=== PATIENT | female | born 1950 | race Caucasian/White ===

== ENCOUNTER → 2017-07-04 | Outpatient (CLI) | payer MEDICARE ==
--- NOTE | 2017-07-04 09:56 | MM ---
Reason for exam: clinical finding. Last mammogram was performed 1 year ago. History: Patient is postmenopausal and has history of other cancer at age 56. Physical Findings: Nurse did not find any significant physical abnormalities on exam. MG 3D Diag Mammo W/Cad CARMINE Bilateral CC and MLO view(s) were taken. Prior study comparison: July 10, 2016, mammogram. July 06, 2015, mammogram. July 02, 2014, mammogram. The breast tissue is heterogeneously dense. This may lower the sensitivity of mammography. Areas of fat necrosis in the axilla are stable. Subareolar asymmetry on the left breast is unchanged and has an appearance of normal tissue. This likely accounts for the questioned CT finding. No significant changes when compared with prior studies. ASSESSMENT: Negative, BI-RAD 1 RECOMMENDATION: Routine screening mammogram of both breasts in 1 year.
== END | disposition home or self-care (01) ==
LOC: RADMAMWWP 07:54
PROVIDERS: ATTEND Obstetrics & Gynecology
DX: N63 Unspecified lump in breast (principal)
CPT/HCPCS: G0204; G0279

== ENCOUNTER → 2018-07-25 | Outpatient (CLI) | payer MEDICARE ==
--- NOTE | 2018-07-28 13:39 | MM ---
Reason for exam: screening (asymptomatic). Last mammogram was performed 1 year and 1 month ago. History: Patient is postmenopausal and has history of other cancer at age 56. Physical Findings: A clinical breast exam by your physician is recommended on an annual basis and results should be correlated with mammographic findings. MG 3D Screening Mammo W/Cad Bilateral CC and MLO view(s) were taken. Prior study comparison: July 04, 2017, bilateral MG 3d diag mammo w/cad CARMINE. July 10, 2016, mammogram. The breast tissue is heterogeneously dense. This may lower the sensitivity of mammography. Benign appearing bilateral calcifications. No suspicious abnormality. No significant changes when compared with prior studies. ASSESSMENT: Benign, BI-RAD 2 RECOMMENDATION: Routine screening mammogram of both breasts in 1 year.
== END | disposition home or self-care (01) ==
LOC: RADMAMWWP 14:52
PROVIDERS: ATTEND Obstetrics & Gynecology
DX: Z12.31 Encounter for screening mammogram for malignant neoplasm of breast (principal)
CPT/HCPCS: 77063; 77067

== ENCOUNTER → 2018-12-08 | Outpatient (CLI) | payer MEDICARE ==
--- NOTE | 2018-12-08 14:48 | BD ---
EXAMINATION TYPE: Axial Bone Density DATE OF EXAM: 12/08/2018 COMPARISON: 2017 CLINICAL HISTORY: Long-term use of systemic steroids. Osteoporosis screening. Height: 5 FT 3 IN Weight: 181 FRAX RISK QUESTIONS: Glucocorticoids (More than 3mos): YES (Ex: prednisone, prednisolone, methylprednisolone, dexamethasone, and hydrocortisone). History of Fracture in Adulthood: YES Secondary Osteoporosis: 3. Menopause before 45: YES RISK FACTORS HISTORY OF: Active: YES Postmenopausal woman: AGE 47 Lost more than 2 inches in height since high school: YES MEDICATIONS: Prednisone or other steroids: PREDISONE How Lon YEARS Thyroid Medications: YES Which medication: LEVOTHYROXINE How Lon YEARS Osteoporosis Medications: YES Which medication: GENERIC FOR BONIVA How Lon YRS Additional Medications: PREDISONE, ATACAND, METOPROLOL, BUPROPION, AMLODIPINE, BONIVA, LEVOTHYROXINE Additional History: PT HAS POLYMYOSITIS EXAM MEASUREMENTS: Bone mineral densitometry was performed using the USDS System. Bone mineral density as measured about the Lumbar spine is: ----- L1-L4(G/cm2): 0.978 T Score Values are as follows: ----- L2: -2.6 ----- L3: -1.1 ----- L4: -1.0 ----- L1-L4: -1.7 Bone mineral density has: INCREASED 2.9 % since study of: 2017 Bone mineral density about the R hip (g/cm2): 0.893 Bone mineral density about the L hip (g/cm2): 0.898 T Score values are as follows: -----R Neck: -1.0 -----L Neck: -1.0 -----R Total: -1.7 -----L Total: -1.4 Bone mineral density has: DECREASED -1.7 % since study of: 2017 IMPRESSION: Osteopenia (T Score between -2.5 and -1). There is slightly increased risk of fracture and the patient may be considered for treatment. Re-Screen 2-5 years. NOTE: T-SCORE=SD OF THE YOUNG ADULT MEAN.
== END | disposition home or self-care (01) ==
LOC: RADBDWWP 12:31
PROVIDERS: ATTEND Internal Medicine Rheumatology
DX: M85.80 Other specified disorders of bone density and structure, unspecified site (principal); M33.20 Polymyositis, organ involvement unspecified; Z79.52 Long term (current) use of systemic steroids
CPT/HCPCS: 77080

== ENCOUNTER → 2019-08-10 | Outpatient (CLI) | payer MEDICARE ==
--- NOTE | 2019-08-10 10:19 | MM ---
Reason for exam: screening (asymptomatic). Last mammogram was performed 1 year and 1 month ago. History: Patient is postmenopausal and has history of other cancer at age 56. Physical Findings: A clinical breast exam by your physician is recommended on an annual basis and results should be correlated with mammographic findings. MG 3D Screening Mammo W/Cad Bilateral CC and MLO view(s) were taken. Prior study comparison: July 25, 2018, bilateral MG 3d screening mammo w/cad. July 04, 2017, bilateral MG 3d diag mammo w/cad CARMINE. The breast tissue is heterogeneously dense. This may lower the sensitivity of mammography. Benign appearing bilateral calcifications. No suspicious abnormality. No significant changes when compared with prior studies. ASSESSMENT: Benign, BI-RAD 2 RECOMMENDATION: Routine screening mammogram of both breasts in 1 year.
== END | disposition home or self-care (01) ==
LOC: RADMAMWWP 07:51
PROVIDERS: ATTEND Obstetrics & Gynecology
DX: Z12.31 Encounter for screening mammogram for malignant neoplasm of breast (principal)
CPT/HCPCS: 77063; 77067

== ENCOUNTER → 2019-08-13 | Outpatient (CLI) | payer MEDICARE | END | disposition home or self-care (01) | LOC: LABWHC1 16:20 | PROVIDERS: ATTEND Orthopaedic Surgery | DX: M76.821 Posterior tibial tendinitis, right leg (principal); M25.571 Pain in right ankle and joints of right foot; E55.9 Vitamin D deficiency, unspecified; I11.9 Hypertensive heart disease without heart failure; E03.9 Hypothyroidism, unspecified; Z85.9 Personal history of malignant neoplasm, unspecified | CPT/HCPCS: 36415; 82306 ==

== ENCOUNTER 2020-03-18 10:21 | Day surgery (SDC) | payer MEDICARE ==
[~2020-03-18 10:21] MED LIST: ALPRAZolam 0.25 MG TAB PO PRN; ALPRAZolam 0.5 MG TAB PO PRN; ASPIRIN 325 MG TAB PO STA; NITROGLYCERIN SL TABS 0.4 MG TAB SUBLINGUAL PRN; SODIUM CHLORIDE 0.9% 1,000 ML in EMPTY BAG 1 BAG IV ONE
[2020-03-18 11:08] LABS: Basophils % (A) 0 %; Eosinophils # (A) 0.1 k/uL (0-0.7); Eosinophils % (A) 1 %; HCT 43.5 % (34.0-46.0); HGB 14.4 gm/dL (11.4-16.0); Lymphocytes # (A) 0.4 k/uL (1.0-4.8); Lymphocytes % (A) 4 %; MCHC 33.1 g/dL (31.0-37.0); MCV 93.7 fL (80.0-100.0); Mean Platelet Volume 7.7; Monocytes # (A) 0.5 k/uL (0-1.0); Monocytes % (A) 4 %; Neutrophils # (A) 10.3 k/uL (1.3-7.7); Neutrophils % (A) 89 %; Platelet Count 257 k/uL (150-450); RBC 4.64 m/uL (3.80-5.40); RDW 14.1 % (11.5-15.5); WBC 11.5 k/uL (3.8-10.6)
[2020-03-18] MEDS ORDERED: VERAPAMIL 2.5 MG/ML 2 ML AMP ONE (11:19)
[2020-03-18] MEDS ORDERED: LIDOCAINE 1% INJ 10MG/ML (20 ML MDV) ONE (11:19)
[2020-03-18 11:32] LABS: African American GFR (CKD) >90 (>60 ml/min/1.73 sqM); Anion Gap 6 mmol/L; Blood Urea Nitrogen 17 mg/dL (7-17); Carbon Dioxide 23 mmol/L (22-30); Chloride 109 mmol/L (98-107); Glucose 114 mg/dL (74-99); Non-African American GFR(CKD) 90 (>60 ml/min/1.73 sqM); Potassium 4.7 mmol/L (3.5-5.1); Sodium 138 mmol/L (137-145)
[2020-03-18] MEDS ORDERED: fentaNYL (PF) 50 MCG/ML 2 ML AMP ONE (11:38)
[2020-03-18] MEDS ORDERED: fentaNYL (PF) 50 MCG/ML 2 ML AMP IV ONE (11:45)
[2020-03-18] MEDS ORDERED: MIDAZOLAM 2 MG/2 ML VIAL IV ONE (11:45)
[2020-03-18] MEDS ORDERED: LIDOCAINE 1% INJ 10MG/ML (20 ML MDV) SQ ONE (11:47)
[2020-03-18] MEDS ORDERED: VERAPAMIL SYRINGE (5 MG/10 ML) INTRAARTER ONE (11:55)
[2020-03-18] MEDS ORDERED: HEPARIN SODIUM 1,000 UN/ML (10ML VL) ONE (11:56)
--- NOTE | 2020-03-18 12:21 | P.CARDCATH ---
Date of Procedure: 03/18/20 Preoperative Diagnosis: This is a 69-year-old female with history of coronary artery disease and chest pains who had a stress test and office recently. Patient developed chest pain and EKG changes and also reversible ischemia involving the anterior wall. Patient is advised to have a cardiac catheterization for definitive diagnosis. This is a patient of . Postoperative Diagnosis: Critical lesion involving the mid LAD Procedure(s) Performed: Left heart catheterization without left ventriculography Description of Procedure: HISTORY: This is a 69-year-old female with history of positive stress test with ischemia in the anterior wall CONSENT:I have discussed the risks, benefits and alternative therapies for the above-mentioned procedure and for both sedation/analgesia as well as necessary blood product administration, if indicated, as they pertain to this patient. The patient has indicated understanding and acceptance of the risks and procedures discussed. PROCEDURE: Patient was brought to the lab in a fasting state. Patient was given some IV sedation. The right wrist is infiltrated with lidocaine and right radial artery was entered using Seldinger technique. A 6-Yi catheter was left in place and selective coronary arteriography was performed. Patient tolerated the procedure well. Patient is going to have stent placement of the LAD by Dr. Torres Conscious Sedation: Versed 1mg Fentanyl 50 g Duration 21minutes HEMODYNAMICS: Aortic pressure is about 140/80. Left ventricle end-diastolic pressure is about 10. There was no gradient across the aortic valve SELECTIVE CORONARY ARTERIOGRAPHY: LEFT MAIN: Long and free of occlusive disease THE LEFT ANTERIOR DESCENDING CORONARY ARTERY:. Good caliber vessel with about 70% stenosis in the midportion. Rest of the vessel is free of any significant disease THE LEFT CIRCUMFLEX AND IS CORONARY ARTERY:. This is a fair caliber vessel giving rise good-sized OM branch. Mild plaque without any significant focal lesions THE RIGHT CORONARY ARTERY: Dominant vessel giving rise to PDA and PLV. Diffuse mild plaque without any significant focal lesion LEFT VENTRICULOGRAPHY:. Not performed FINAL IMPRESSION:. Critical lesion involving the mid LAD PLAN: Stent placement of the LAD to be done by Dr. Torres PROGNOSIS: []
[2020-03-18] MEDS ORDERED: BIVALIRUDIN BOLUS 250 MG/50 ML IV ONE (12:25)
[2020-03-18] MEDS ORDERED: BIVALIRUDIN 250 MG in SODIUM CHLORIDE 0.9% 50 ML IV ONE (12:26)
[2020-03-18] MEDS ORDERED: NITROGLYCERIN 1000MCG/10ML SYRINGE INTRACORON ONE (12:29)
[2020-03-18] MEDS ORDERED: IOPAMIDOL-370 125ML BTL INJ ONE (12:34)
[2020-03-18] MEDS ORDERED: TICAGRELOR 90 MG TAB ONE (12:35)
[2020-03-18] MEDS ORDERED: TICAGRELOR 90 MG TAB PO ONE (12:37)
[2020-03-18] MEDS ORDERED: ZOLPIDEM 5 MG TAB PO PRN (12:38)
[2020-03-18] MEDS ORDERED: RX INFO: IV CONTRAST WAS GIVEN 1 EACH MISC MISCELLANE PRN (12:38)
[2020-03-18] MEDS ORDERED: NITROGLYCERIN SL TABS 0.4 MG TAB SUBLINGUAL PRN (12:38)
[2020-03-18] MEDS ORDERED: ATROPINE SULFATE 0.1 MG/ML 10ML SYRINGE IV PRN (12:38)
[2020-03-18] MEDS ORDERED: MAG HYDROX/AL HYDROX/SIMETH 30 ML CUP PO PRN (12:38)
[2020-03-18] MEDS ORDERED: SODIUM CHLORIDE 0.9% 1,000 ML IV SCH (12:45)
[2020-03-18] MEDS ORDERED: LEVOTHYROXINE 75 MCG TAB PO SCH (12:45)
[2020-03-18 14:40] VITALS: BMI 32.3
--- NOTE | 2020-03-18 16:29 | PTCA ---
PERCUTANEOUSTRANS CORORONARY ANGIOGRAPHY DATE OF SERVICE: March 18, 2020 PERFORMING PHYSICIAN: Faisal Mcpherson MD. PROCEDURE PERFORMED: Successful stenting of the mid left anterior descending artery using 3.5 x 15 mm Xience NOHEMY with an excellent angiographic result and reduction of stenosis from 70?%-80% to 0%. INDICATION: This is a 69-year-old female patient who sees Dr. Conrad in the office as an outpatient with hypertension and dyslipidemia who was experiencing symptoms of chest discomfort and underwent myocardial perfusion imaging stress test and that revealed an anterior ischemia. Because of that, heart catheterization was advised. The patient underwent a heart catheterization by Dr. Julian and that showed severe disease involving the proximal to mid LAD. APPROACH: Right radial artery. COMPLICATION: None. LEVEL OF SEDATION: Moderate with sedation length of 18 minutes. PROCEDURE DESCRIPTION: Please refer to the diagnostic heart catheterization that was performed by Dr. Julian earlier today. Anticoagulation was initiated using Angiomax. Subsequently I did engage the left main using JL3.5 guide. I did wire the LAD using a run-through wire. Successful stenting was performed using 3.5 x 15 mm Xience NOHEMY where the stent was positioned under fluoroscopy guidance and deployed under 14 atmospheres for 20 seconds with postdilatation was performed using 3.5 x 10 mm NC balloon. The balloon was inflated under 18 atmospheres for 20 seconds. The final angiogram showed excellent angiographic results and the procedure was completed without any complication. POSTPROCEDURE MANAGEMENT: 1. Dual anti-platelet therapy. 2. Risk factor modifications. 3. Follow up with the patient. MMODL / IJN: [id number] /
[2020-03-18] MEDS ORDERED: ACETAMINOPHEN TAB 325 MG TAB PO STA (18:32)
[2020-03-18] MEDS: METOPROLOL TARTRATE 25 MG TAB PO SCH (20:32)
[2020-03-18] MEDS: TICAGRELOR 90 MG TAB PO SCH (20:32)
[2020-03-18] MEDS ORDERED: ATORVASTATIN 80 MG TAB PO SCH (21:00)
[2020-03-19] MEDS ORDERED: LEVOTHYROXINE 50 MCG TAB PO SCH (06:30)
[2020-03-19 08:06] LABS: Basophils % (A) 0 %; Eosinophils # (A) 0.2 k/uL (0-0.7); Eosinophils % (A) 3 %; HCT 41.2 % (34.0-46.0); HGB 13.8 gm/dL (11.4-16.0); Lymphocytes # (A) 0.7 k/uL (1.0-4.8); Lymphocytes % (A) 9 %; MCH 31.2 pg (25.0-35.0); MCHC 33.4 g/dL (31.0-37.0); MCV 93.4 fL (80.0-100.0); Mean Platelet Volume 7.5; Monocytes # (A) 0.7 k/uL (0-1.0); Monocytes % (A) 9 %; Neutrophils # (A) 5.9 k/uL (1.3-7.7); Neutrophils % (A) 78 %; Platelet Count 206 k/uL (150-450); RBC 4.42 m/uL (3.80-5.40); RDW 14.3 % (11.5-15.5); WBC 7.5 k/uL (3.8-10.6)
[2020-03-19 08:24] LABS: African American GFR (CKD) >90 (>60 ml/min/1.73 sqM); Anion Gap 5 mmol/L; Blood Urea Nitrogen 10 mg/dL (7-17); Calcium 9.3 mg/dL (8.4-10.2); Carbon Dioxide 25 mmol/L (22-30); Chloride 108 mmol/L (98-107); Glucose 101 mg/dL (74-99); Non-African American GFR(CKD) >90 (>60 ml/min/1.73 sqM); Potassium 4.1 mmol/L (3.5-5.1); Sodium 138 mmol/L (137-145)
[2020-03-19] MEDS ORDERED: MULTIVITAMINS, THERA 1 EACH TAB PO SCH (09:00)
[2020-03-19] MEDS ORDERED: NON FORMULARY DRUG (Turmeric Root Extract [Turmeric] 500 MG) PO SCH (09:00)
[2020-03-19] MEDS ORDERED: LOSARTAN 50 MG TAB PO SCH (09:00)
[2020-03-19] MEDS ORDERED: NON FORMULARY DRUG (Ubidecarenone [Co Q-10] 300 MG) PO SCH (09:00)
[2020-03-19] MEDS ORDERED: NON FORMULARY DRUG (Vitamin B Complex [Vitamin B Complex] 1 TAB) PO SCH (09:00)
[2020-03-19] MEDS ORDERED: ASCORBIC ACID 500 MG TAB PO SCH (09:00)
[2020-03-19] MEDS ORDERED: ASPIRIN 81 MG PO SCH (09:00)
[2020-03-19] MEDS ORDERED: predniSONE 10 MG TAB PO SCH (09:00)
[2020-03-19] MEDS ORDERED: NON FORMULARY DRUG (Calcium/Magnesium/Zinc [Calcium-Magnesium-Zinc Tablet] 1 TAB) PO SCH (09:00)
[2020-03-19] MEDS ORDERED: buPROPion XL 150 MG TAB.ER.24H PO SCH (09:00)
[2020-03-19] MEDS ORDERED: azaTHIOprine 50 MG TAB PO SCH (09:00)
[2020-03-19 09:03] VITALS: RESP 18; TEMP 97.6
[2020-03-19] MEDS: METOPROLOL TARTRATE 25 MG TAB PO SCH (09:04)
[2020-03-19] MEDS: TICAGRELOR 90 MG TAB PO SCH (09:14)
[2020-03-19] MEDS ORDERED: amLODIPine 5 MG TAB PO STA (11:15)
[2020-03-19] MEDS ORDERED: HYDROCHLOROTHIAZIDE 25 MG TAB PO SCH (11:15)
[2020-03-19 11:42] VITALS: PULSE 65
--- NOTE | 2020-03-19 11:45 | XR ---
EXAMINATION TYPE: XR chest 1V DATE OF EXAM: 03/19/2020 HISTORY: shortness of breath. REFERENCE: NONE. FINDINGS: The lungs are clear. Pleural spaces are clear. Heart size is within normal limits. There is mild vascular congestion without emeka edema. IMPRESSION: MILD VASCULAR CONGESTION.
--- NOTE | 2020-03-19 12:09 | PN ---
PROGRESS NOTE Mrs. Larios 69-year-old female who underwent cardiac catheterization yesterday by Dr. Julian, was found to have significant obstructive disease involving the LAD, underwent stenting of that vessel by Dr. Mcpherson, receiving a 3.5 x 15 mm Xience stent. She is doing well this morning. She has no chest pain. Her breathing has been stable. She denies any dizziness or palpitation. She denies any nausea. She is in sinus mechanism. She continues to be on aspirin once a day, Lipitor 80 mg daily, azathioprine, levothyroxine, losartan 100 mg daily, metoprolol tartrate 75 mg twice a day, Brilinta 90 mg twice a day, multivitamins. PHYSICAL EXAMINATION: Blood pressure running in the 150s. Her blood pressure earlier was elevated. Heart rate in the 70s. LUNGS: Clear. HEART: Regular rate and rhythm. S1, S2. No S3. No rub. ABDOMEN: Soft, obese, nontender. EXTREMITIES: No edema. Right radial pulse intact. EKG revealed no acute changes. LAB DATA: Revealed a hemoglobin of 13.8, BUN and creatinine 10 and 0.64, potassium 4.1. IMPRESSION: 1. Status post stenting of the LAD. 2. History of hypertension. 3. History of Hyperlipidemia. RECOMMENDATIONS: Patient will be discharged home today and follow up with Dr. Conrad next week. MMODL / IJN: [id number] /
[2020-03-19 13:10] VITALS: BP 147/78
[2020-04-06] MEDS ORDERED: IBANDRONATE SODIUM 150 MG PO SCH (09:00)
== END 2020-03-19 15:34 | disposition home or self-care (01) ==
LOC: CATHCVL 10:21 → 3SCARD 12:45 → CATHCVL 03-19 15:34
PROVIDERS: ATTEND Internal Medicine Cardiovascular Disease
DX: I25.10 Atherosclerotic heart disease of native coronary artery without angina pectoris (principal); I10 Essential (primary) hypertension; E78.5 Hyperlipidemia, unspecified; I42.1 Obstructive hypertrophic cardiomyopathy; I34.0 Nonrheumatic mitral (valve) insufficiency; I49.3 Ventricular premature depolarization; I71.2 Thoracic aortic aneurysm, without rupture; M33.20 Polymyositis, organ involvement unspecified; Z82.49 Family history of ischemic heart disease and other diseases of the circulatory system; Z79.82 Long term (current) use of aspirin; Z79.890 Hormone replacement therapy; Z79.52 Long term (current) use of systemic steroids; Z79.899 Other long term (current) drug therapy
CPT/HCPCS: 93458; 80048 ×2; 85025 ×2; 71045; C9600; C1887; C1725; C1769 ×2; C1874; C1894; J7500; J2250; J2001; J3010; J0583; J1644; J7512; Q9967

== ENCOUNTER → 2020-05-04 | Outpatient (CLI) | payer MEDICARE ==
[2020-05-04 17:53] LABS: Chol/HDL Ratio 3.53; LDL Cholesterol,Calculated 41.6 mg/dL (0.0-131.0); VLDL Calculation 39.4 mg/dL (5.00-40.00)
== END | disposition home or self-care (01) ==
LOC: LABWHC1 08:15
PROVIDERS: ATTEND Internal Medicine Clinical Cardiac Electrophysiology
DX: I25.10 Atherosclerotic heart disease of native coronary artery without angina pectoris (principal); E78.5 Hyperlipidemia, unspecified; M33.20 Polymyositis, organ involvement unspecified
CPT/HCPCS: 36415; 80061; 82550

== ENCOUNTER 2020-09-01 15:49 | Inpatient (IN) | payer MEDICARE ==
[2020-09-01] MEDS ORDERED: PANTOPRAZOLE 40 MG/10 ML VIAL IVP STA (16:24)
--- NOTE | 2020-09-01 16:29 | ED ---
General Adult HPI - General Chief complaint: GI Bleed Stated complaint: Blood in Stool Time Seen by Provider: 09/01/20 15:56 Source: patient Mode of arrival: ambulatory Limitations: no limitations - History of Present Illness Initial comments: Patient presents to the ED with her for evaluation. Patient states that she had a colonoscopy with 2 polyps removed (performed by Dr. Valdez) 2 days ago. Patient states that she developed bright red rectal bleeding about 3 hours ago, and she states that she has gone to the bathroom about 6-7 times now with rectal bleeding. Patient states that she is taking Brilinta currently, and she denies any other anticoagulant medication use. Patient denies having any symptoms or any other complaints at this time. Patient denies having any pain, fever or chills, headache, chest pain, dyspnea, dizziness, lightheadedness, palpitations, abdominal pain, rectal pain, nausea, vomiting, diarrhea or constipation, dysuria/hematuria/urinary frequency/urinary symptoms, or any other symptoms or complaints. - Related Data Home Medications Medication Instructions Recorded Confirmed Ascorbic Acid [Vitamin C] 2,000 mg PO DAILY 08/25/15 03/18/20 Aspirin [Adult Low Dose Aspirin EC] 81 mg PO DAILY 08/25/15 03/18/20 Calcium/Magnesium/Zinc 1 tab PO DAILY 08/25/15 03/18/20 [[id number]-[id number]-[id number] Tablet] Candesartan Cilexetil [Atacand] 16 mg PO DAILY 08/25/15 03/18/20 Ibandronate Sodium [Boniva] 150 mg PO Q30D 08/25/15 03/18/20 Metoprolol Tartrate 75 mg PO BID 08/25/15 03/18/20 Multivitamins, Thera [Multivitamin 1 tab PO DAILY 08/25/15 03/18/20 (formulary)] Ubidecarenone [Co Q-10] 300 mg PO DAILY 08/25/15 03/18/20 Vitamin B Complex 1 tab PO DAILY 08/25/15 03/18/20 buPROPion XL [Wellbutrin XL] 150 mg PO QAM 08/25/15 03/18/20 predniSONE 10 mg PO QAM 08/25/15 03/18/20 Levothyroxine Sodium [Synthroid] 50 mcg PO SUTUTHSA 03/16/20 03/18/20 Levothyroxine Sodium [Synthroid] 75 mcg PO MOWEFR 03/16/20 03/18/20 Turmeric Root Extract [Turmeric] 500 mg PO DAILY 03/16/20 03/18/20 azaTHIOprine [Imuran] 100 mg PO DAILY 03/16/20 03/18/20 Previous Rx's Medication Instructions Recorded Atorvastatin [Lipitor] 80 mg PO HS #90 tab 03/19/20 Nitroglycerin Sl Tabs [Nitrostat] 0.4 mg SUBLINGUAL Q5M PRN #25 tab 03/19/20 Ticagrelor [Brilinta] 90 mg PO BID #180 tab 03/19/20 hydroCHLOROthiazide [Hydrodiuril] 25 mg PO DAILY #90 tab 03/19/20 Allergies Allergy/AdvReac Type Severity Reaction Status Date / Time No Known Allergies Allergy Verified 09/01/20 15:54 Review of Systems ROS Statement: Those systems with pertinent positive or pertinent negative responses have been documented in the HPI. ROS Other: All systems not noted in ROS Statement are negative. Past Medical History Past Medical History: Cancer, GI Bleed, Hypertension Additional Past Medical History / Comment(s): LOWER GI BLEED. BASAL SKin CA. OSTEOPENIA. POLYMYOCYTIS. HEART MURMUR, SEE DR BLISS H&p, ASCENDING THORACIC AORTIC ANEURSYM, HYPERTROPHIC CARDIOMYOPATHY History of Any Multi-Drug Resistant Organisms: None Reported Past Surgical History: Heart Catheterization Additional Past Surgical History / Comment(s): SINUS. CARPAL TUNNEL CARMINE. BASAL SKIN CA ON BACK,LT FOOT TOE STRAIGHTENED, BLEPHAROPLASTY Past Anesthesia/Blood Transfusion Reactions: Postoperative Nausea & Vomiting (PONV) Additional Past Anesthesia/Blood Transfusion Reaction / Comment(s): INCLUDES IV SEDATION. Past Psychological History: Depression Smoking Status: Never smoker Past Alcohol Use History: None Reported Past Drug Use History: None Reported - Past Family History Mother Family Medical History: No Reported History General Exam Limitations: no limitations General appearance: alert, in no apparent distress Head exam: Present: atraumatic, normocephalic Eye exam: Present: normal appearance, PERRL, EOMI ENT exam: Present: mucous membranes moist Neck exam: Present: other (Trachea is in midline) Respiratory exam: Present: normal lung sounds bilaterally. Absent: respiratory distress, wheezes, rales, rhonchi Cardiovascular Exam: Present: regular rate, normal rhythm, normal heart sounds, other (Normal radial pulses bilaterally) GI/Abdominal exam: Present: soft. Absent: distended, tenderness, guarding Rectal exam: Present: deferred, other (Patient had a grossly bloody bowel movement on arrival to the ED, which was sent for occult blood testing) Extremities exam: Absent: tenderness, pedal edema Neurological exam: Present: alert, oriented X3. Absent: motor sensory deficit Psychiatric exam: Present: normal affect, normal mood Skin exam: Present: warm, dry, intact, normal color Course Vital Signs 09/01/20 15:52 Temperature 97.8 F Pulse Rate 75 Respiratory 20 Rate Blood Pressure 166/75 O2 Sat by Pulse 99 Oximetry - Reevaluation(s) Reevaluation #1: 09/01/20 17:20 Patient remains alert and breathing comfortably. Patient denies development of any new symptoms while in the ED. Patient remains hemodynamically stable in the ED. Patient and are aware the patient's test results, and they both agree with hospital admission at this time. 09/01/20 17:32 Case, H&P, test results and ED management thus far were discussed with Dr. Trejo who is currently in the ED. He recommends placing GI and cardiology consultat ions. He accepts hospital admission. He has no further recommendations at this time. Medical Decision Making - Medical Decision Making Patient's hemoglobin is within normal limits (12.7). Patient has been hemodynamically stable while in the ED. Will admit the patient to the hospital for observation/monitoring, further evaluation and serial H&H's. Dr. Trejo has accepted hospital admission. - Lab Data Result diagrams: 09/01/20 16:23 09/01/20 16:23 Lab Results 09/01/20 09/01/20 09/01/20 Range/Units 16:23 16:23 16:23 WBC 9.3 (3.8-10.6) k/uL RBC 4.27 (3.80-5.40) m/uL Hgb 12.7 (11.4-16.0) gm/dL Hct 37.7 (34.0-46.0) % MCV 88.1 (80.0-100.0) fL MCH 29.8 (25.0-35.0) pg MCHC 33.8 (31.0-37.0) g/dL RDW 13.3 (11.5-15.5) % Plt Count 267 (150-450) k/uL MPV 7.1 Neutrophils % 81 % Lymphocytes % 8 % Monocytes % 6 % Eosinophils % 3 % Basophils % 1 % Neutrophils # 7.6 (1.3-7.7) k/uL Lymphocytes # 0.7 L (1.0-4.8) k/uL Monocytes # 0.6 (0-1.0) k/uL Eosinophils # 0.3 (0-0.7) k/uL Basophils # 0.1 (0-0.2) k/uL PT 11.4 (9.0-12.0) sec INR 1.1 (<1.2) APTT 26.3 (22.0-30.0) sec Sodium 133 L (137-145) mmol/L Potassium 4.3 (3.5-5.1) mmol/L Chloride 103 (98-107) mmol/L Carbon Dioxide 23 (22-30) mmol/L Anion Gap 7 mmol/L BUN 14 (7-17) mg/dL Creatinine 0.63 (0.52-1.04) mg/dL Est GFR (CKD-EPI)AfAm >90 (>60 ml/min/1.73 sqM) Est GFR (CKD-EPI)NonAf >90 (>60 ml/min/1.73 sqM) Glucose 104 H (74-99) mg/dL Calcium 10.4 H (8.4-10.2) mg/dL Total Bilirubin 0.3 (0.2-1.3) mg/dL AST 44 H (14-36) U/L ALT 30 (4-34) U/L Alkaline Phosphatase 75 (38-126) U/L Total Protein 7.3 (6.3-8.2) g/dL Albumin 4.1 (3.5-5.0) g/dL Stool Occult Blood (Negative) Blood Type Blood Type Recheck Bld Type Recheck Status Antibody Screen Spec Expiration Date 09/01/20 09/01/20 Range/Units 16:23 16:23 WBC (3.8-10.6) k/uL RBC (3.80-5.40) m/uL Hgb (11.4-16.0) gm/dL Hct (34.0-46.0) % MCV (80.0-100.0) fL MCH (25.0-35.0) pg MCHC (31.0-37.0) g/dL RDW (11.5-15.5) % Plt Count (150-450) k/uL MPV Neutrophils % % Lymphocytes % % Monocytes % % Eosinophils % % Basophils % % Neutrophils # (1.3-7.7) k/uL Lymphocytes # (1.0-4.8) k/uL Monocytes # (0-1.0) k/uL Eosinophils # (0-0.7) k/uL Basophils # (0-0.2) k/uL PT (9.0-12.0) sec INR (<1.2) APTT (22.0-30.0) sec Sodium (137-145) mmol/L Potassium (3.5-5.1) mmol/L Chloride (98-107) mmol/L Carbon Dioxide (22-30) mmol/L Anion Gap mmol/L BUN (7-17) mg/dL Creatinine (0.52-1.04) mg/dL Est GFR (CKD-EPI)AfAm (>60 ml/min/1.73 sqM) Est GFR (CKD-EPI)NonAf (>60 ml/min/1.73 sqM) Glucose (74-99) mg/dL Calcium (8.4-10.2) mg/dL Total Bilirubin (0.2-1.3) mg/dL AST (14-36) U/L ALT (4-34) U/L Alkaline Phosphatase (38-126) U/L Total Protein (6.3-8.2) g/dL Albumin (3.5-5.0) g/dL Stool Occult Blood Positive H (Negative) Blood Type O Positive Blood Type Recheck O Pos Bld Type Recheck Status No Antibody Screen NEGATIVE Spec Expiration Date 09/04/20202322 Disposition Clinical Impression: Gastrointestinal hemorrhage Disposition: ADMITTED IP TO THIS [facility] Condition: Stable Is patient prescribed a controlled substance at d/c from ED?: No Referrals: Anthony Molina MD [Primary Care Provider] - 1-2 days Time of Disposition: 17:43
[2020-09-01] MEDS ORDERED: SODIUM CHLORIDE 0.9% 500 ML 500 ML IV ONE (16:30)
[2020-09-01 16:39] LABS: Basophils # (A) 0.1 k/uL (0-0.2); Basophils % (A) 1 %; Eosinophils # (A) 0.3 k/uL (0-0.7); Eosinophils % (A) 3 %; HCT 37.7 % (34.0-46.0); HGB 12.7 gm/dL (11.4-16.0); Lymphocytes # (A) 0.7 k/uL (1.0-4.8); Lymphocytes % (A) 8 %; MCH 29.8 pg (25.0-35.0); MCHC 33.8 g/dL (31.0-37.0); MCV 88.1 fL (80.0-100.0); Mean Platelet Volume 7.1; Monocytes # (A) 0.6 k/uL (0-1.0); Monocytes % (A) 6 %; Neutrophils # (A) 7.6 k/uL (1.3-7.7); Neutrophils % (A) 81 %; Platelet Count 267 k/uL (150-450); RBC 4.27 m/uL (3.80-5.40); RDW 13.3 % (11.5-15.5); WBC 9.3 k/uL (3.8-10.6)
[2020-09-01 16:48] LABS: INR 1.1 (<1.2); Partial Thromboplastin Time 26.3 sec (22.0-30.0); Prothrombin Time 11.4 sec (9.0-12.0)
[2020-09-01 16:56] LABS: ALT 30 U/L (4-34); AST 44 U/L (14-36); African American GFR (CKD) >90 (>60 ml/min/1.73 sqM); Albumin 4.1 g/dL (3.5-5.0); Alkaline Phosphatase 75 U/L (38-126); Anion Gap 7 mmol/L; Blood Urea Nitrogen 14 mg/dL (7-17); Calcium 10.4 mg/dL (8.4-10.2); Carbon Dioxide 23 mmol/L (22-30); Chloride 103 mmol/L (98-107); Glucose 104 mg/dL (74-99); Non-African American GFR(CKD) >90 (>60 ml/min/1.73 sqM); Potassium 4.3 mmol/L (3.5-5.1); Sodium 133 mmol/L (137-145); Total Bilirubin 0.3 mg/dL (0.2-1.3); Total Protein 7.3 g/dL (6.3-8.2)
[2020-09-01 18:29] LABS: Basophils # (A) 0.1 k/uL (0-0.2); Basophils % (A) 1 %; Eosinophils # (A) 0.3 k/uL (0-0.7); Eosinophils % (A) 2 %; HGB 11.5 gm/dL (11.4-16.0); Lymphocytes # (A) 0.5 k/uL (1.0-4.8); Lymphocytes % (A) 5 %; MCH 29.9 pg (25.0-35.0); MCHC 33.9 g/dL (31.0-37.0); MCV 88.2 fL (80.0-100.0); Mean Platelet Volume 7.4; Monocytes # (A) 0.7 k/uL (0-1.0); Monocytes % (A) 7 %; Neutrophils % (A) 84 %; Platelet Count 235 k/uL (150-450); RBC 3.86 m/uL (3.80-5.40); RDW 13.3 % (11.5-15.5); WBC 10.8 k/uL (3.8-10.6)
[2020-09-01] MEDS: SODIUM CHLORIDE 0.9% 1,000 ML IV SCH (18:38)
[2020-09-01] MEDS ORDERED: NITROGLYCERIN SL TABS 0.4 MG TAB SUBLINGUAL PRN (21:09)
--- NOTE | 2020-09-01 21:54 | XR ---
EXAMINATION TYPE: XR chest 1V portable DATE OF EXAM: 09/01/2020 CLINICAL HISTORY: Difficulty breathing progress study. TECHNIQUE: Single AP portable upright view of the chest is obtained. COMPARISON: Chest x-ray from March 19, 2020 FINDINGS: Background chronic parenchymal changes bilaterally without suspicious focal airspace opaci ty, pleural effusion, or pneumothorax seen. Cardiac silhouette size is stable and within normal limit s. Osseous structures are intact. IMPRESSION: Chronic parenchymal changes without acute pulmonary process.
[2020-09-01 22:05] LABS: Basophils % (A) 0 %; Eosinophils # (A) 0.2 k/uL (0-0.7); Eosinophils % (A) 2 %; HCT 30.3 % (34.0-46.0); HGB 10.4 gm/dL (11.4-16.0); Lymphocytes # (A) 0.7 k/uL (1.0-4.8); Lymphocytes % (A) 8 %; MCH 30.3 pg (25.0-35.0); MCHC 34.2 g/dL (31.0-37.0); MCV 88.4 fL (80.0-100.0); Mean Platelet Volume 8.4; Monocytes # (A) 0.6 k/uL (0-1.0); Monocytes % (A) 7 %; Neutrophils # (A) 7.2 k/uL (1.3-7.7); Neutrophils % (A) 81 %; Platelet Count 222 k/uL (150-450); RBC 3.43 m/uL (3.80-5.40); RDW 13.4 % (11.5-15.5); WBC 8.9 k/uL (3.8-10.6)
[2020-09-02] MEDS: METOPROLOL TARTRATE 25 MG TAB PO SCH ×2 (00:57→09:50)
--- NOTE | 2020-09-02 04:45 | HP ---
HISTORY AND PHYSICAL DATE OF SERVICE: 09/01/2020 CHIEF COMPLAINT: GI bleed. HISTORY OF PRESENT ILLNESS: This 69-year-old woman with a past medical history of multiple medical problems including history of GI bleed, hypertension, history of basal cell cancer, history of cardiac catheterization and stent placement in March being followed by Dr. Benton Molina in the outpatient setting. Recently had a colonoscopy and polypectomy by Dr. Valdez at [facility] about 2 days ago. Subsequently, today the patient noted to have a significant GI bleed, rectal bleeding about 3 hours ago, a large amount of darkish clot was noted. The patient came to [facility] and admitted for further evaluation and treatment. There is no history of fever, rigors. No history of headache, loss of consciousness or seizures. The patient is taking Brilinta currently because of the stent placement. PAST MEDICAL HISTORY: History of GI bleed, hypertension, history of depression. MEDICATIONS: Medications prior to admission include home medications are: 1. Pravachol. 2. Nitrostat. 3. Multivitamins. 4. Magnesium. 5. Biotin. 6. Coenzyme Q 10. 7. Turmeric. 8. Vitamin D3. 9. Aspirin. 10.Vitamin C. 11.Vitamin B complex. 12.Repatha. 13.Vitamin B12. 14.HydroDIURIL. 15.Brilinta. 16.Synthroid. 17.Wellbutrin. 18.Boniva. 19.Lopressor. 20.Atacand. ALLERGIES: None. FAMILY HISTORY: No history of heart disease or strokes in the family. SOCIAL HISTORY: No history of smoking. No history of alcohol intake. REVIEW OF SYSTEMS: ENT: No diminished hearing or diminished vision. CARDIOVASCULAR SYSTEM: No angina. RESPIRATORY SYSTEM: As mentioned earlier. GI: As mentioned earlier. : No dysuria. NERVOUS SYSTEM: No numbness or weakness. ALLERGY/IMMUNOLOGY: No asthma or hayfever. MUSCULOSKELETAL: As mentioned earlier. HEMATOLOGY/ONCOLOGY: No history of anemia. ENDOCRINE: No history of diabetes mellitus or hypothyroidism. CONSTITUTIONAL: As mentioned earlier. DERMATOLOGY: Negative. RHEUMATOLOGY: Negative. PSYCHIATRY: As mentioned earlier. PHYSICAL EXAMINATION: The patient is alert and oriented x3. Pulse 81, blood pressure 113/56, respiration 18, temperature 98 degrees, pulse ox 97% on room air. HEENT: Conjunctivae normal. NECK: No jugular venous distention. CARDIOVASCULAR: S1, S2 muffled. RESPIRATORY: Breath sounds diminished at the bases. A few scattered rhonchi and crackles. ABDOMEN: Soft, nontender. No mass palpable. LEGS: No edema. No swelling. NERVOUS SYSTEM: No focal deficits. LABS: WBC 10.8, hemoglobin 11.5, sodium 133. ASSESSMENT: 1. Acute lower gastrointestinal bleeding with possibly acute blood loss anemia. 2. Increased WBC. 3. History of recent colonoscopy and polypectomy. 4. Hyponatremia. 5. History of coronary artery disease, stent. 6. Increased AST. 7. History of hypertension. 8. History of osteopenia. 9. History of polymyositis. 10.History of cardiac murmur. 11.Ascending thoracic aortic aneurysm. 12.History of hypertrophic cardiomyopathy. 13.History of depression. 14.FULL CODE. RECOMMENDATIONS AND DISCUSSION: This 69-year-old woman presented with multiple complex medical issues. Will monitor the patient closely. Continue the current medications, continue symptomatic treatment. Stop the antiplatelet agents. I would recommend H and H q.6 and transfuse if hemoglobin falls less than 7. Otherwise Gastroenterology consultation for possible colonoscopy. Cardiology consultation. Resume the rest of medications. Prognosis guarded because of multiple complex medical issues. Further recommendations to follow. A copy of dictation forwarded to Dr. Benton Molina who is the primary physician. MMBEATAL / IJN: [id number] /
[2020-09-02] MEDS: SODIUM CHLORIDE 0.9% 1,000 ML IV SCH ×2 (06:17→19:52)
[2020-09-02] MEDS: LEVOTHYROXINE 100 MCG TAB PO SCH (06:23)
--- NOTE | 2020-09-02 08:21 | P.CRDCN ---
History of Present Illness Consult date: 09/02/20 Reason for Consult (text): GI bleed, patient on Brilinta Chief complaint: Lower GI bleeding History of present illness: This is a pleasant 69-year-old female who follows the office regularly with Dr. Conrad. She has a known history of coronary artery disease, in March of this year patient underwent stenting of the LAD. She has history of HOCM, hypertension, hyperlipidemia, thoracic aneurysm, mitral regurgitation. Patient underwent an EGD and colonoscopy by Dr. Patterson on Saturday of this week, she had 2 polyps removed. On Saturday the patient felt well, evening patient went to the bathroom, states that she passed a significant amount of blood clots through the rectum. She continued subsequent to that to have several episodes of bleeding from the rectum. Patient had held her Brilinta and aspirin prior to her procedure, but she did resume following the procedure. Her chest x-ray on presentation here showed chronic parenchymal changes without any acute pulmonary process. Blood pressure 115/68, heart rate 90, 98% on room air. Laboratory data on admission, white blood cell count 9.3, hemoglobin 12.7, platelet count 267. Sodium 133, potassium 4.4, BUN 14, creatinine 0.6. Stool for occult blood positive. Yesterday Morning's labs, white blood cell count 8.9, hemoglobin 10.4, platelet count 222. Patient did receive a unit of packed red blood cells last evening. No EKG performed. stacker shows a normal sinus rhythm with no evidence of any ectopy. Patient was seen and examined this morning, she denies any chest pain, no shortness of breath. Patient continues to have frequent bouts of lower GI bleeding. Past Medical History Past Medical History: Cancer, GI Bleed, Hypertension Additional Past Medical History / Comment(s): LOWER GI BLEED. BASAL SKin CA. OSTEOPENIA. POLYMYOCYTIS. HEART MURMUR, SEE DR BLISS H&p, ASCENDING THORACIC AORTIC ANEURSYM, HYPERTROPHIC CARDIOMYOPATHY History of Any Multi-Drug Resistant Organisms: None Reported Past Surgical History: Heart Catheterization Additional Past Surgical History / Comment(s): SINUS. CARPAL TUNNEL CARMINE. BASAL SKIN CA ON BACK,LT FOOT TOE STRAIGHTENED, BLEPHAROPLASTY Past Anesthesia/Blood Transfusion Reactions: Postoperative Nausea & Vomiting (PONV) Additional Past Anesthesia/Blood Transfusion Reaction / Comment(s): INCLUDES IV SEDATION. Past Psychological History: Depression Smoking Status: Never smoker Past Alcohol Use History: None Reported Past Drug Use History: None Reported - Past Family History Mother Family Medical History: No Reported History Medications and Allergies Home Medications Medication Instructions Recorded Confirmed Type Ascorbic Acid [Vitamin C] 500 mg PO DAILY 08/25/15 09/01/20 History Aspirin [Adult Low Dose Aspirin EC] 81 mg PO DAILY 08/25/15 09/01/20 History Candesartan Cilexetil [Atacand] 16 mg PO DAILY 08/25/15 09/01/20 History Ibandronate Sodium [Boniva] 150 mg PO Q30D 08/25/15 09/01/20 History Multivitamins, Thera [Multivitamin 1 tab PO DAILY 08/25/15 09/01/20 History (formulary)] Ubidecarenone [Co Q-10] 300 mg PO DAILY 08/25/15 09/01/20 History Vitamin B Complex 1 tab PO DAILY 08/25/15 09/01/20 History buPROPion XL [Wellbutrin XL] 150 mg PO DAILY 08/25/15 09/01/20 History Turmeric Root Extract [Turmeric] 500 mg PO DAILY 03/16/20 09/01/20 History azaTHIOprine [Imuran] 100 mg PO DAILY 03/16/20 09/01/20 History Nitroglycerin Sl Tabs [Nitrostat] 0.4 mg SUBLINGUAL Q5M PRN #25 tab 03/19/20 09/01/20 Rx Ticagrelor [Brilinta] 90 mg PO BID #180 tab 03/19/20 09/01/20 Rx Biotin 5,000 mcg PO DAILY 09/01/20 09/01/20 History Cholecalciferol [Vitamin D3 (25 2,000 unit PO DAILY 09/01/20 09/01/20 History Mcg = 1000 Iu)] Cyanocobalamin (Vitamin B-12) 2,500 mcg PO DAILY 09/01/20 09/01/20 History [Vitamin B-12] Evolocumab [Repatha Sureclick] 140 mg SQ Q14D 09/01/20 09/01/20 History Levothyroxine Sodium [Synthroid] 100 mcg PO SUTUTHSA 09/01/20 09/01/20 History Levothyroxine Sodium [Synthroid] 150 mcg PO MOWEFR 09/01/20 09/01/20 History Magnesium 250 mg PO DAILY 09/01/20 09/01/20 History Metoprolol Tartrate [Lopressor] 75 mg PO BID 09/01/20 09/01/20 History Pravastatin Sodium [Pravachol] 20 mg PO HS 09/01/20 09/01/20 History hydroCHLOROthiazide [Hydrodiuril] 12.5 mg PO DAILY 09/01/20 09/01/20 History Allergies Allergy/AdvReac Type Severity Reaction Status Date / Time No Known Allergies Allergy Verified 09/01/20 19:26 Physical Exam Vitals: Vital Signs Temp Pulse Pulse Resp BP BP Pulse Ox 09/02/20 04:27 98.3 F 93 17 115/69 98 09/02/20 02:59 98.4 F 80 18 135/71 97 09/02/20 01:03 98.1 F 83 18 128/66 96 09/02/20 00:33 97.8 F 73 17 123/67 95 09/02/20 00:32 97.8 F 75 17 133/75 95 09/02/20 00:23 98.2 F 79 18 130/69 09/01/20 22:26 72 18 117/71 98 09/01/20 21:49 97.3 F L 72 112/69 09/01/20 21:15 74 142/80 97 09/01/20 19:53 98 F 81 18 113/56 97 09/01/20 18:00 70 16 143/77 100 09/01/20 15:52 97.8 F 75 20 166/75 99 Intake and Output 09/01/20 09/02/20 09/02/20 22:59 06:59 14:59 Intake Total 310 Output Total 1 1 Balance -1 309 Intake: Blood Product 310 Rc Pheresis As3 Unit 310 [id number] Output: Urine 1 1 Other: Voiding Method Toilet Toilet # Bowel Movements 3 1 Weight 80.286 kg PHYSICAL EXAMINATION: GENERAL: 69-year-old female in no acute distress at the time of my exa mination HEENT: Head is atraumatic, normocephalic. Pupils equal, round. Sclera anicteric. Conjunctiva are clear. Mucous membranes of the mouth are moist. Neck is supple. There is no elevated jugular venous pressure. No carotid bruit is heard. HEART EXAMINATION: Heart S1 and S2 systolic ejection murmur is heard CHEST EXAMINATION: Lungs are clear to auscultation and precussion. No chest wall tenderness is noted on palpation or with deep breathing. ABDOMEN: Soft, nontender. Bowel sounds are heard. No organomegaly noted. EXTREMITIES: 2+ peripheral pulses with no evidence of peripheral edema and no calf tenderness noted. NEUROLOGIC patient is awake, alert and oriented 3 . . Results 09/01/20 21:57 09/01/20 16:23 Cardiac Enzymes 09/01/20 Range/Units 16:23 AST 44 H (14-36) U/L Coagulation 09/01/20 Range/Units 16:23 PT 11.4 (9.0-12.0) sec APTT 26.3 (22.0-30.0) sec CBC 09/01/20 09/01/20 09/01/20 Range/Units 16:23 18:06 21:57 WBC 9.3 10.8 H 8.9 (3.8-10.6) k/uL RBC 4.27 3.86 3.43 L (3.80-5.40) m/uL Hgb 12.7 11.5 10.4 L (11.4-16.0) gm/dL Hct 37.7 34.0 30.3 L (34.0-46.0) % Plt Count 267 235 222 (150-450) k/uL Comprehensive Metabolic Panel 09/01/20 Range/Units 16:23 Sodium 133 L (137-145) mmol/L Potassium 4.3 (3.5-5.1) mmol/L Chloride 103 (98-107) mmol/L Carbon Dioxide 23 (22-30) mmol/L BUN 14 (7-17) mg/dL Creatinine 0.63 (0.52-1.04) mg/dL Glucose 104 H (74-99) mg/dL Calcium 10.4 H (8.4-10.2) mg/dL AST 44 H (14-36) U/L ALT 30 (4-34) U/L Alkaline Phosphatase 75 (38-126) U/L Total Protein 7.3 (6.3-8.2) g/dL Albumin 4.1 (3.5-5.0) g/dL Current Medications Generic Name Dose Route Start Last Admin Trade Name Freq PRN Reason Stop Dose Admin Azathioprine 100 mg 09/02/20 09:00 Azathioprine 50 Mg Tab PO DAILY [facility] Bupropion HCl 150 mg 09/02/20 09:00 Bupropion Xl 150 Mg Tab.Er.24h PO DAILY [facility] Hydrochlorothiazide 12.5 mg 09/02/20 09:00 Hydrochlorothiazide 25 Mg Tab PO DAILY [facility] Sodium Chloride 1,000 mls @ 80 mls/hr 09/01/20 17:45 09/02/20 06:17 Saline 0.9% IV 80 mls/hr .[id number] RACQUEL Administration Levothyroxine Sodium 150 mcg 09/02/20 06:30 09/02/20 06:23 Levothyroxine 100 Mcg Tab PO 150 mcg [id number] [facility] Administration Levothyroxine Sodium 100 mcg 09/03/20 06:30 Levothyroxine 100 Mcg Tab PO [id number] [facility] Losartan Potassium 100 mg 09/02/20 09:00 Losartan 50 Mg Tab PO DAILY [facility] Magnesium Oxide 200 mg 09/02/20 09:00 Magnesium Oxide 400 Mg Tab PO DAILY [facility] Metoprolol Tartrate 75 mg 09/01/20 21:15 09/02/20 00:57 Metoprolol Tartrate 25 Mg Tab PO Not Given BID [facility] Nitroglycerin 0.4 mg 09/01/20 21:09 Nitroglycerin Sl Tabs 0.4 Mg Tab SUBLINGUAL Q5M PRN Chest Pain Pravastatin Sodium 20 mg 09/02/20 21:00 Pravastatin Sodium 20 Mg Tab PO [facility] Intake and Output 09/01/20 09/02/20 09/02/20 22:59 06:59 14:59 Intake Total 310 Output Total 1 1 Balance -1 309 Intake: Blood Product 310 Rc Pheresis As3 Unit 310 [id number] Output: Urine 1 1 Other: Voiding Method Toilet Toilet # Bowel Movements 3 1 Weight 80.286 kg 09/01/20 21:57 09/01/20 16:23 EKG Interpretations (text) No EKG performed Assessment and Plan Plan: Assessment and plan #1 acute lower GI bleeding, patient underwent a colonoscopy 2 days prior with the removal of 2 polyps. She had been on Brilinta 90 mg twice a day along with aspirin 81 mg daily. Both of these were held prior to the procedure, they were resumed post procedure. Currently on hold. Patient did receive one unit of packed red blood cells last evening. #2 coronary artery disease with LAD stenting using a Xience NOHEMY in March of this year #3 HOCM #4 hyperlipidemia #5 hypertension #6 thoracic aneurysm #7 mitral regurgitation Plan Will obtain an echocardiogram with Doppler study, it appears the patient did have an echo in February of this year in the office. We will also obtain an EKG this morning. In view of the fact that the patient has had a recent stent placement to the LAD, and chronic stable angina, she will need to be resumed on her ASA as soon as possible, once cleared by GI. Further recommendations to follow. DNP note has been reviewed, I agree with a documented findings and plan of care. Patient was seen and examined.
[2020-09-02] MEDS ORDERED: hydroCHLOROthiazide 25 MG TAB PO SCH (09:00)
[2020-09-02 09:42] LABS: Basophils % (A) 0 %; Eosinophils # (A) 0.1 k/uL (0-0.7); Eosinophils % (A) 1 %; HCT 26.6 % (34.0-46.0); Lymphocytes # (A) 0.6 k/uL (1.0-4.8); Lymphocytes % (A) 6 %; MCH 28.8 pg (25.0-35.0); MCHC 32.5 g/dL (31.0-37.0); MCV 88.7 fL (80.0-100.0); Mean Platelet Volume 7.6; Monocytes # (A) 0.5 k/uL (0-1.0); Monocytes % (A) 6 %; Neutrophils # (A) 8.3 k/uL (1.3-7.7); Neutrophils % (A) 86 %; Platelet Count 246 k/uL (150-450); Poikilocytosis Slight; WBC 9.6 k/uL (3.8-10.6)
[2020-09-02 09:47] LABS: HGB 8.6 gm/dL (11.4-16.0)
[2020-09-02] MEDS: MAGNESIUM OXIDE 400 MG TAB PO SCH (09:50)
[2020-09-02] MEDS: LOSARTAN 50 MG TAB PO SCH (09:50)
[2020-09-02] MEDS: azaTHIOprine 50 MG TAB PO SCH (09:50)
[2020-09-02] MEDS: buPROPion XL 150 MG TAB.ER.24H PO SCH (09:50)
[2020-09-02 09:56] LABS: ALT 18 U/L (4-34); AST 26 U/L (14-36); African American GFR (CKD) >90 (>60 ml/min/1.73 sqM); Albumin 2.6 g/dL (3.5-5.0); Alkaline Phosphatase 49 U/L (38-126); Anion Gap 3 mmol/L; Blood Urea Nitrogen 15 mg/dL (7-17); Calcium 8.8 mg/dL (8.4-10.2); Carbon Dioxide 23 mmol/L (22-30); Chloride 107 mmol/L (98-107); Glucose 118 mg/dL (74-99); Non-African American GFR(CKD) >90 (>60 ml/min/1.73 sqM); Potassium 4.1 mmol/L (3.5-5.1); Sodium 133 mmol/L (137-145); Total Bilirubin 0.4 mg/dL (0.2-1.3); Total Protein 5.1 g/dL (6.3-8.2)
[2020-09-02] MEDS: PANTOPRAZOLE 40 MG/10 ML VIAL IVP SCH ×2 (11:03→21:25)
[2020-09-02] MEDS ORDERED: FUROSEMIDE 10 MG/ML 2 ML VIAL IV ONE (13:41)
--- NOTE | 2020-09-02 15:13 | PN ---
PROGRESS NOTE DATE OF SERVICE: 09/02/2020 This is a 69-year-old woman was admitted with acute gastrointestinal bleed, hemoglobin going up to 8.6. Patient being transfused 2 more units at this time. The patient received 3 units, 1 unit last night and 2 units this morning. The patient had some significant bleeding this morning. Dr. Feldman has seen the patient, recommended prep and as well as colonoscopy as soon as possible. Otherwise, the visualization may be difficult. Cardiology has seen the patient and recommend to resume the antiplatelet agents as soon as possible but; however, the patient is currently bleeding. PAST MEDICAL HISTORY: Reviewed. REVIEW OF SYSTEMS: CARDIOVASCULAR SYSTEM: No angina or palpitations. RESPIRATORY: As mentioned earlier. CARDIOVASCULAR SYSTEM: As mentioned earlier. GI: As mentioned earlier. : No dysuria. NERVOUS SYSTEM: No numbness or weakness. CURRENT MEDICATIONS: Reviewed and include: 1. Imuran. 2. Dulcolax. 3. Wellbutrin. 4. Synthroid. 5. Cozaar. 6. Magnesium oxide. 7. Lopressor. 8. Nitrostat. 9. Protonix. 10.Pravachol. PHYSICAL EXAM: Patient is alert, oriented x3. Pulse is 92, blood pressure is 96/52, respiration 18, temperature 98 degrees, pulse ox 96% on room air. HEENT: Conjunctivae are pale, oral mucosa moist. NECK: No jugular venous distention. No lymph node enlargement. CARDIOVASCULAR: S1, S2, muffled. No S3, no C4. RESPIRATION: Breath sound diminished in the bases. No rhonchi. No crackles. ABDOMEN: Soft, nontender. No mass palpable. LEGS: No edema, no cyanosis. NERVOUS SYSTEM: No focal deficits. LABS: WBC 9.2, hemoglobin is 8.6, sodium is 133. ASSESSMENT: 1. Acute lower gastrointestinal bleeding with possibly acute blood-loss anemia, possible from the bleeding from the biopsy site. 2. Increased WBC. 3. Relative hypotension. 4. History of recent colonoscopy and polypectomy. 5. Hyponatremia. 6. History of CAD stenting of the left anterior descending. 7. Increased AST. 8. Hypertension. 9. Osteopenia. 10.History of polymyositis. 11.Cardiac murmur. 12.History of ascending thoracic aortic aneurysm. 13.History hypertrophic cardiomyopathy. 14.History of depression. 15.FULL CODE. RECOMMENDATION: Recommend to continue current management and treatment otherwise I would recommend to continue to monitor the H and H q.6 hours and transfuse hemoglobin less than 7. Monitor blood pressure closely. Cut down the dose of metoprolol and closely follow with Gastroenterology and Cardiology. Preparation for colonoscopy. Gastroenterology and further recommendations to follow. Otherwise, closely follow with Cardiology. Overall prognosis extremely guarded because of the multiple complex medical issues as detailed above. Discussed with the patient who understands the condition: Further recommendations to follow. MMODL / IJN: [id number] /
[2020-09-02] MEDS ORDERED: PEG 3350-NA SULF,BICARB,CL/KCL 4,000 ML BOTTLE PO ONE (16:00)
[2020-09-02] MEDS ORDERED: bisacodyL 5 MG TABLET.DR PO ONE (17:00)
[2020-09-02 19:23] LABS: HCT 29.5 % (34.0-46.0); MCH 29.3 pg (25.0-35.0); MCHC 33.7 g/dL (31.0-37.0); MCV 86.9 fL (80.0-100.0); Mean Platelet Volume 7.3; Platelet Count 192 k/uL (150-450); Poikilocytosis Slight; RBC 3.39 m/uL (3.80-5.40); RDW 14.7 % (11.5-15.5)
[2020-09-02] MEDS ORDERED: METOPROLOL TARTRATE 50 MG TAB PO SCH (21:00)
[2020-09-02] MEDS: PRAVASTATIN SODIUM 20 MG TAB PO SCH (21:01)
[2020-09-02] MEDS: METOPROLOL TARTRATE 50 MG TAB PO SCH (21:46)
[2020-09-03 01:06] LABS: HCT 28.9 % (34.0-46.0); HGB 9.7 gm/dL (11.4-16.0); MCH 28.9 pg (25.0-35.0); MCHC 33.4 g/dL (31.0-37.0); MCV 86.6 fL (80.0-100.0); Mean Platelet Volume 7.7; Platelet Count 197 k/uL (150-450); Poikilocytosis Slight; RBC 3.34 m/uL (3.80-5.40); WBC 11.2 k/uL (3.8-10.6)
[2020-09-03] MEDS: LEVOTHYROXINE 100 MCG TAB PO SCH (06:13)
[2020-09-03] MEDS: azaTHIOprine 50 MG TAB PO SCH (08:44)
[2020-09-03] MEDS: buPROPion XL 150 MG TAB.ER.24H PO SCH (08:45)
[2020-09-03] MEDS: MAGNESIUM OXIDE 400 MG TAB PO SCH (08:46)
[2020-09-03] MEDS: LOSARTAN 50 MG TAB PO SCH (08:46)
[2020-09-03] MEDS: METOPROLOL TARTRATE 50 MG TAB PO SCH ×2 (08:48→20:54)
[2020-09-03] MEDS: PANTOPRAZOLE 40 MG/10 ML VIAL IVP SCH ×2 (08:48→20:54)
--- NOTE | 2020-09-03 10:23 | P.CONS ---
History of Present Illness - Reason for Consult Consult date: 09/02/20 GI bleed Requesting physician: Neo Trejo - Chief Complaint GI bleed - History of Present Illness 69-year-old female with medical history significant for hypertension, coronary artery disease status post cardiac catheterization with stent placement in March, basal cell cancer, and colon polyps who presented to the hospital due to concerns of GI bleeding. The patient recently underwent colonoscopy with polypectomy 2 this past week at [facility]. She subsequently developed episodes of painless bright red blood per rectum. She reports at least 7 episodes of bleeding per rectum. She denies any abdominal pain but does report some cramping. No nausea, vomiting, hematemesis or coffee-ground emesis. The patient is on anticoagulation Brilinta due to her history of prior stent placement. Hemoglobin on presentation found to be 8.6 from 12.7 previously. She has also undergone endoscopic evaluation in 08/2015 at which time EGD showed duodenitis and colonoscopy showed diverticulosis and pseudopolyps. Currently the patient is seen resting comfortably in bed. Review of Systems REVIEW OF SYSTEMS: CONSTITUTIONAL: Denies any fevers, chills, weight change or fatigue. CARDIOVASCULAR: Denies any chest pain, palpitations high or low blood pressures RESPIRATORY: Denies any shortness of breath, hemoptysis or cough. GENITOURINARY: No dysuria or hematuria. MUSCULOSKELETAL: No weakness reported. SKIN: Denies any new rashes or lesions, jaundice or pallor. PSYCHIATRIC: Denies any depression or anxiety. NEUROLOGY: Denies headache, denies any new focal deficits. EARS/NOSE/THROAT: No recent hearing change, congestion, nasal discharge or sore throat. EYES: No pain in eyes, discharge or change in vision. GASTROINTESTINAL: As per HPI. Past Medical History Past Medical History: Cancer, GI Bleed, Hypertension Additional Past Medical History / Comment(s): LOWER GI BLEED. BASAL SKin CA. OSTEOPENIA. POLYMYOCYTIS. HEART MURMUR, SEE DR BLISS H&p, ASCENDING THORACIC AORTIC ANEURSYM, HYPERTROPHIC CARDIOMYOPATHY History of Any Multi-Drug Resistant Organisms: None Reported Past Surgical History: Heart Catheterization Additional Past Surgical History / Comment(s): SINUS. CARPAL TUNNEL CARMINE. BASAL SKIN CA ON BACK,LT FOOT TOE STRAIGHTENED, BLEPHAROPLASTY Past Anesthesia/Blood Transfusion Reactions: Postoperative Nausea & Vomiting (PONV) Additional Past Anesthesia/Blood Transfusion Reaction / Comm: INCLUDES IV SEDATION. Past Psychological History: Depression Smoking Status: Never smoker Past Alcohol Use History: None Reported Past Drug Use History: None Reported - Past Family History Mother Family Medical History: No Reported History Medications and Allergies Home Medications Medication Instructions Recorded Confirmed Type Ascorbic Acid [Vitamin C] 500 mg PO DAILY 08/25/15 09/01/20 History Aspirin [Adult Low Dose Aspirin EC] 81 mg PO DAILY 08/25/15 09/01/20 History Candesartan Cilexetil [Atacand] 16 mg PO DAILY 08/25/15 09/01/20 History Ibandronate Sodium [Boniva] 150 mg PO Q30D 08/25/15 09/01/20 History Multivitamins, Thera [Multivitamin 1 tab PO DAILY 08/25/15 09/01/20 History (formulary)] Ubidecarenone [Co Q-10] 300 mg PO DAILY 08/25/15 09/01/20 History Vitamin B Complex 1 tab PO DAILY 08/25/15 09/01/20 History buPROPion XL [Wellbutrin XL] 150 mg PO DAILY 08/25/15 09/01/20 History Turmeric Root Extract [Turmeric] 500 mg PO DAILY 03/16/20 09/01/20 History azaTHIOprine [Imuran] 100 mg PO DAILY 03/16/20 09/01/20 History Nitroglycerin Sl Tabs [Nitrostat] 0.4 mg SUBLINGUAL Q5M PRN #25 tab 03/19/20 09/01/20 Rx Ticagrelor [Brilinta] 90 mg PO BID #180 tab 03/19/20 09/01/20 Rx Biotin 5,000 mcg PO DAILY 09/01/20 09/01/20 History Cholecalciferol [Vitamin D3 (25 2,000 unit PO DAILY 09/01/20 09/01/20 History Mcg = 1000 Iu)] Cyanocobalamin (Vitamin B-12) 2,500 mcg PO DAILY 09/01/20 09/01/20 History [Vitamin B-12] Evolocumab [Repatha Sureclick] 140 mg SQ Q14D 09/01/20 09/01/20 History Levothyroxine Sodium [Synthroid] 100 mcg PO SUTUTHSA 09/01/20 09/01/20 History Levothyroxine Sodium [Synthroid] 150 mcg PO MOWEFR 09/01/20 09/01/20 History Magnesium 250 mg PO DAILY 09/01/20 09/01/20 History Metoprolol Tartrate [Lopressor] 75 mg PO BID 09/01/20 09/01/20 History Pravastatin Sodium [Pravachol] 20 mg PO HS 09/01/20 09/01/20 History hydroCHLOROthiazide [Hydrodiuril] 12.5 mg PO DAILY 09/01/20 09/01/20 History Allergies Allergy/AdvReac Type Severity Reaction Status Date / Time No Known Allergies Allergy Verified 09/01/20 19:26 Physical Exam Vitals: Vital Signs Temp Pulse Pulse Resp BP BP Pulse Ox 09/02/20 09:00 98.0 F 95 18 93/58 96 09/02/20 04:27 98.3 F 93 17 115/69 98 09/02/20 02:59 98.4 F 80 18 135/71 97 09/02/20 01:03 98.1 F 83 18 128/66 96 09/02/20 00:33 97.8 F 73 17 123/67 95 09/02/20 00:32 97.8 F 75 17 133/75 95 09/02/20 00:23 98.2 F 79 18 130/69 09/01/20 22:26 72 18 117/71 98 09/01/20 21:49 97.3 F L 72 112/69 09/01/20 21:15 74 142/80 97 09/01/20 19:53 98 F 81 18 113/56 97 09/01/20 18:00 70 16 143/77 100 09/01/20 15:52 97.8 F 75 20 166/75 99 Intake and Output 09/01/20 09/02/20 09/02/20 22:59 06:59 14:59 Intake Total 310 Output Total 1 1 Balance -1 309 Intake: Blood Product 310 Rc Pheresis As3 Unit 310 [id number] Output: Urine 1 1 Other: Voiding Method Toilet Toilet # Bowel Movements 3 1 Weight 80.286 kg On physical examination, patient appears comfortable in no apparent distress. HEAD: Normocephalic, atraumatic. EYES: No scleral icterus. No conjunctival injection. MOUTH: No lesions, tongue midline. NECK: Trachea midline, no gross abnormalities. CHEST: Clear to auscultation with no wheezing or rhonchi appreciated. HEART: Regular rate and rhythm. ABDOMEN: Soft, nontender to palpation. Bowel sounds are positive. No organomegaly. No guarding or rigidity. EXTREMITIES: No pedal edema. SKIN: No rashes, no jaundice. NEUROLOGIC: Alert and oriented x3. No focal deficits. Results CBC & Chem 7: 09/03/20 00:51 09/02/20 09:11 Labs: Abnormal Lab Results - Last 24 Hours (Table) 09/01/20 09/01/20 09/01/20 Range/Units 16:23 16:23 16:23 WBC (3.8-10.6) k/uL RBC (3.80-5.40) m/uL Hgb (11.4-16.0) gm/dL Hct (34.0-46.0) % Neutrophils # (1.3-7.7) k/uL Lymphocytes # 0.7 L (1.0-4.8) k/uL Sodium 133 L (137-145) mmol/L Glucose 104 H (74-99) mg/dL Calcium 10.4 H (8.4-10.2) mg/dL AST 44 H (14-36) U/L Total Protein (6.3-8.2) g/dL Albumin (3.5-5.0) g/dL Stool Occult Blood Positive H (Negative) Crossmatch 09/01/20 09/01/20 09/01/20 Range/Units 16:23 18:06 21:57 WBC 10.8 H (3.8-10.6) k/uL RBC 3.43 L (3.80-5.40) m/uL Hgb 10.4 L (11.4-16.0) gm/dL Hct 30.3 L (34.0-46.0) % Neutrophils # 9.0 H (1.3-7.7) k/uL Lymphocytes # 0.5 L 0.7 L (1.0-4.8) k/uL Sodium (137-145) mmol/L Glucose (74-99) mg/dL Calcium (8.4-10.2) mg/dL AST (14-36) U/L Total Protein (6.3-8.2) g/dL Albumin (3.5-5.0) g/dL Stool Occult Blood (Negative) Crossmatch See Detail 09/02/20 09/02/20 Range/Units 09:11 09:11 WBC (3.8-10.6) k/uL RBC 3.00 L (3.80-5.40) m/uL Hgb 8.6 L D (11.4-16.0) gm/dL Hct 26.6 L (34.0-46.0) % Neutrophils # 8.3 H (1.3-7.7) k/uL Lymphocytes # 0.6 L (1.0-4.8) k/uL Sodium 133 L (137-145) mmol/L Glucose 118 H (74-99) mg/dL Calcium (8.4-10.2) mg/dL AST (14-36) U/L Total Protein 5.1 L (6.3-8.2) g/dL Albumin 2.6 L (3.5-5.0) g/dL Stool Occult Blood (Negative) Crossmatch Chest x-ray: report reviewed (Chronic changes seen on chest x-ray) Assessment and Plan (1) Hematochezia Narrative/Plan: 69-year-old female with multiple medical comorbidities including coronary artery disease on Brilinta after stent placement in March of this year who presented to the hospital with complaints of blood per rectum after colonoscopy earlier in the week. The patient reports multiple episodes of painless bright red blood p er rectum. Colonoscopy was significant for polypectomy 2. She denies any nausea, vomiting, hematemesis or coffee-ground emesis. Patient is passing gross red blood per rectum. Suspicion is for post-polypectomy bleed, differential also includes diverticular bleed, AVM or other etiology. Current Visit: Yes Status: Acute Code(s): K92.1 - MELENA SNOMED Code(s): 139391331 (2) Anemia associated with acute blood loss Current Visit: Yes Status: Acute Code(s): D62 - ACUTE POSTHEMORRHAGIC ANEMIA SNOMED Code(s): 903040006 (3) Gastrointestinal hemorrhage Current Visit: Yes Status: Acute Code(s): K92.2 - GASTROINTESTINAL HEMORRHAGE, UNSPECIFIED SNOMED Code(s): 23138414 Plan: Supportive care Clear liquid diet Nothing by mouth after midnight Bowel prep ordered Continue to monitor serial hemoglobin and hematocrit and transfuse as needed Would hold antiplatelet/anticoagulation therapy for now, can however given asp irin due to recent stent placement Plan for colonoscopy tomorrow for further evaluation Appreciate recommendations from the cardiology service Thank you for allowing us to participate in the care of the patient
[2020-09-03 10:32] LABS: Basophils % (A) 1 %; Eosinophils # (A) 0.1 k/uL (0-0.7); Eosinophils % (A) 2 %; HCT 25.6 % (34.0-46.0); HGB 8.8 gm/dL (11.4-16.0); Lymphocytes # (A) 0.7 k/uL (1.0-4.8); Lymphocytes % (A) 10 %; MCH 29.9 pg (25.0-35.0); MCHC 34.5 g/dL (31.0-37.0); MCV 86.7 fL (80.0-100.0); Mean Platelet Volume 7.6; Monocytes # (A) 0.5 k/uL (0-1.0); Monocytes % (A) 7 %; Neutrophils # (A) 5.6 k/uL (1.3-7.7); Neutrophils % (A) 80 %; Platelet Count 166 k/uL (150-450); Poikilocytosis Slight; RBC 2.95 m/uL (3.80-5.40); RDW 14.8 % (11.5-15.5); WBC 7.1 k/uL (3.8-10.6)
[2020-09-03] MEDS ORDERED: PROPOFOL 10 MG/ML 20 ML VIAL IV ONE (10:32)
[2020-09-03] MEDS ORDERED: ONDANSETRON 4 MG/2 ML VIAL ONE (10:32)
[2020-09-03] MEDS ORDERED: IV FLUID CONTINUATION 1,000 ML IV ONE ×2 (10:34)
[2020-09-03 10:44] LABS: African American GFR (CKD) >90 (>60 ml/min/1.73 sqM); Anion Gap 3 mmol/L; Blood Urea Nitrogen 9 mg/dL (7-17); Calcium 8.8 mg/dL (8.4-10.2); Carbon Dioxide 25 mmol/L (22-30); Chloride 107 mmol/L (98-107); Glucose 94 mg/dL (74-99); Non-African American GFR(CKD) >90 (>60 ml/min/1.73 sqM); Potassium 3.7 mmol/L (3.5-5.1); Sodium 135 mmol/L (137-145)
--- NOTE | 2020-09-03 10:50 | PN ---
PROGRESS NOTE Mrs. Larios is a 69-year-old female who recently underwent a colonoscopy and presented with severe GI bleeding. She has history of coronary artery disease status post percutaneous revascularization in a setting of chronic ischemic heart disease. She has prepped to undergo colonoscopy today. She has some chest pain and that she relates to the prep. She denies any dizziness. No palpitation. Her breathing is stable. She denies any nausea or vomiting. She continues to be at this time on Imuran, bupropion, levothyroxine, losartan 100 mg daily, metoprolol 50 mg twice a day, pravastatin 20 mg daily. PHYSICAL EXAMINATION: Blood pressure 122/60 with a heart rate in 90s. LUNGS: Clear. Heart regular rate and rhythm S1, S2. No S3 with systolic murmur. No diastolic murmur. ABDOMEN: Soft, nontender. EXTREMITIES: No edema. LAB DATA: Revealed hemoglobin 9.7. IMPRESSION: 1. Severe gastrointestinal bleeding. Workup in progress. 2. Status post percutaneous revascularization performed in March for chronic ischemic heart disease. 3. History of hypertension. 4. Hyperlipidemia. RECOMMENDATIONS: We will await the results of the colonoscopy. If there is no active bleeding, then I would recommend to restart aspirin 81 mg daily. I will hold on the Brilinta at this time and depending on her progress, further recommendations will be made. MMODL / IJN: [id number] /
--- NOTE | 2020-09-03 11:26 | P.PCN ---
Date of Procedure: 09/03/20 Description of Procedure: BRIEF HISTORY: 69-year-old female with medical history significant for hypertension, coronary artery disease status post cardiac catheterization with stent placement in March, basal cell cancer, and colon polyps who presented to the hospital due to concerns of GI bleeding. The patient recently underwent colonoscopy with polypectomy 2 this past week at [facility]. She subsequently developed episodes of painless bright red blood per rectum. She reports at least 7 episodes of bleeding per rectum. She denies any abdominal pain but does report some cramping. No nausea, vomiting, hematemesis or coffee-ground emesis. The patient is on anticoagulation Brilinta due to her history of prior stent placement. Hemoglobin on presentation found to be 8.6 from 12.7 previously. She has also undergone endoscopic evaluation in 08/2015 at which time EGD showed duodenitis and colonoscopy showed diverticulosis and pseudopolyps. Currently the patient is seen resting comfortably in bed. PROCEDURE PERFORMED: Colonoscopy with Endo Clip placement. PREOPERATIVE DIAGNOSIS: Hematochezia, anemia of acute blood loss. ESTIMATED BLOOD LOSS: Minimal. IV sedation per Anesthesia. PROCEDURE: After informed consent was obtained, the patient, was brought into the endoscopy unit. IV sedation was administered by Anesthesia under continuous monitoring. Digital rectal examination was normal. Initially the Olympus CF-190 flexible video colonoscope was then inserted in the rectum, gradually advanced into the cecum without any difficulty. Careful examination was performed as the scope was gradually being withdrawn. Ileocecal valve and the appendiceal orifice were visualized and appeared normal. Prep was excellent. Mucosa of the cecum, ascending colon, transverse colon, descending colon, sigmoid colon, and rectum appeared normal. Scattered diverticula noted in the left colon. Nonbleeding ulcer in the ascending colon at the site of prior polypectomy, there was a small clots at the area with no bleeding after it was washed away and an Endo Clip was placed to ensure hemostasis. Low-grade internal hemorrhoids. No active bleeding or old blood was noted throughout the entire examined colon and terminal ileum. Retroflexion was performed in the rectum and no lesions were seen. The patient tolerated the procedure well. IMPRESSION: No active bleeding noted in entire examined colon and terminal ileum. Small nonbleeding ulcer at polypectomy site in the ascending colon with an adherent clot that was lavaged with no bleeding noted, Endo Clip was placed to ensure continued hemostasis. Mild Left colonic diverticulosis. Internal hemorrhoids. RECOMMENDATIONS: Findings of this examination were discussed with the patient [].
[2020-09-03 16:50] LABS: HCT 25.1 % (34.0-46.0); HGB 8.4 gm/dL (11.4-16.0); MCH 29.3 pg (25.0-35.0); MCHC 33.5 g/dL (31.0-37.0); MCV 87.4 fL (80.0-100.0); Mean Platelet Volume 7.8; Platelet Count 159 k/uL (150-450); Poikilocytosis Slight; RBC 2.87 m/uL (3.80-5.40); RDW 14.8 % (11.5-15.5); WBC 7.4 k/uL (3.8-10.6)
[2020-09-03] MEDS: SODIUM CHLORIDE 0.9% 1,000 ML IV SCH ×2 (19:13→20:53)
[2020-09-03] MEDS: ASPIRIN 81 MG PO SCH (19:35)
--- NOTE | 2020-09-03 19:53 | PN ---
PROGRESS NOTE DATE OF SERVICE: 09/03/2020 This 69-year-old woman was admitted with lower gastrointestinal bleed, has needed three units of transfusion. Patient had relative hypotension. The patient was seen by Dr. Feldman from Gastroenterology. Dr. Feldman performed colonoscopy and no active bleeding was noted. A small nonbleeding ulcer at the polypectomy site was noted in the ascending colon, which was with ( ) clot that was lavaged with no bleeding noted. An Endoclip was placed to ensure continued hemostasis and mild left colonic diverticulosis. Internal hemorrhoids also noted. Gastroenterology has seen the patient and recommended restart aspirin 81 daily and hold on the Brilinta at this time was suggested by Dr. Potter. PAST MEDICAL HISTORY: Reviewed. REVIEW OF SYSTEMS: CARDIOVASCULAR: No angina. GI As mentioned earlier. NERVOUS SYSTEM: No numbness or weakness. CURRENT MEDICATIONS: Reviewed and include Imuran, Wellbutrin, Synthroid, Cozaar, Protonix, Prevacid. PHYSICAL EXAM: Patient is alert, oriented. Pulse is 86, blood pressure 110/60, respiration 18, temperature 98.1, pulse ox 98% on room air. HEENT: Conjunctivae normal. Oral mucosa moist. NECK: No jugular venous distention. No lymph node enlargement. CARDIOVASCULAR: S1, S2, muffled. No S3, no S4, RESPIRATORY: Diminished breath sounds at the bases. Scattered rhonchi and crackles. ABDOMEN: Soft, nontender. LEGS: No edema, no swelling. NERVOUS SYSTEM: No focal motor or sensory deficits. LAB STUDIES: WBC 7.2, hemoglobin is 8.8, sodium is 135. ASSESSMENT: 1. Acute lower gastrointestinal bleeding with acute blood loss anemia from the bleeding from polypectomy site and status post colonoscopy and Endoclipping. 2. Increased WBC, possibly reactive. 3. Relative hypotension. 4. History of recent coronary artery disease, stenting of the left anterior descending. 5. History of recent colonoscopy and polypectomy. 6. Hyponatremia. 7. Increased AST. 8. Hypertension. 9. Osteopenia. 10.History of polymyositis. 11.Cardiac murmur. 12.History of ascending thoracic aortic aneurysm. 13.History of hypertrophic cardiomyopathy. 14.History of depression. 15.FULL CODE. RECOMMENDATIONS AND DISCUSSION: Recommend to continue current medications, symptomatic treatment. Otherwise at this time I recommend to initiate baby aspirin, continue to monitor, repeat hemoglobin and guarded prognosis because of multiple complex medical issues. Hold Jose per Cardiology. Further recommendations to follow. MMODL / IJN: [id number] /
[2020-09-03] MEDS: PRAVASTATIN SODIUM 20 MG TAB PO SCH (20:54)
[2020-09-04] MEDS: LEVOTHYROXINE 100 MCG TAB PO SCH (06:37)
[2020-09-04 07:21] LABS: Basophils % (A) 1 %; Eosinophils # (A) 0.2 k/uL (0-0.7); Eosinophils % (A) 4 %; HCT 24.1 % (34.0-46.0); HGB 7.9 gm/dL (11.4-16.0); Lymphocytes # (A) 0.6 k/uL (1.0-4.8); Lymphocytes % (A) 14 %; MCH 29.1 pg (25.0-35.0); MCHC 32.7 g/dL (31.0-37.0); MCV 89.1 fL (80.0-100.0); Mean Platelet Volume 7.6; Monocytes # (A) 0.4 k/uL (0-1.0); Monocytes % (A) 9 %; Neutrophils # (A) 3.2 k/uL (1.3-7.7); Neutrophils % (A) 71 %; Platelet Count 162 k/uL (150-450); Poikilocytosis Slight; RBC 2.71 m/uL (3.80-5.40); RDW 15.2 % (11.5-15.5); WBC 4.5 k/uL (3.8-10.6)
[2020-09-04 07:32] LABS: African American GFR (CKD) >90 (>60 ml/min/1.73 sqM); Anion Gap -1 mmol/L; Blood Urea Nitrogen 7 mg/dL (7-17); Calcium 8.6 mg/dL (8.4-10.2); Carbon Dioxide 27 mmol/L (22-30); Chloride 109 mmol/L (98-107); Glucose 90 mg/dL (74-99); Non-African American GFR(CKD) >90 (>60 ml/min/1.73 sqM); Potassium 3.8 mmol/L (3.5-5.1); Sodium 135 mmol/L (137-145)
[2020-09-04] MEDS: MAGNESIUM OXIDE 400 MG TAB PO SCH (09:02)
[2020-09-04] MEDS: METOPROLOL TARTRATE 50 MG TAB PO SCH ×2 (09:02→22:25)
[2020-09-04] MEDS: azaTHIOprine 50 MG TAB PO SCH (09:03)
[2020-09-04] MEDS: LOSARTAN 50 MG TAB PO SCH (09:03)
[2020-09-04] MEDS: PANTOPRAZOLE 40 MG/10 ML VIAL IVP SCH ×2 (09:04→22:26)
[2020-09-04] MEDS: buPROPion XL 150 MG TAB.ER.24H PO SCH (09:04)
[2020-09-04] MEDS: ASPIRIN 81 MG PO SCH (09:17)
[2020-09-04 09:47] LABS: Appearance,Urine Clear (Clear); Bilirubin,Urine Negative (Negative); Blood,Urine Negative (Negative); Color,Urine Colorless; Glucose,Urine (UA) Negative (Negative); Ketones,Urine Negative (Negative); Leukocyte Esterase,Urine Negative (Negative); Nitrite,Urine Negative (Negative); PH, Urine 6.5 (5.0-8.0); Protein,Urine Negative (Negative); Specific Gravity,Urine 1.003 (1.001-1.035); Urobilinogen,Urine <2.0 mg/dL (<2.0)
--- NOTE | 2020-09-04 10:38 | PN ---
PROGRESS NOTE Mrs. Larios is a 69-year-old female with a history of coronary artery disease who presented with significant GI bleeding following colonoscopy and polypectomy. She is feeling better today. Her breathing is better. She denies any symptoms of chest pain. She denies any dizziness or palpitation. She underwent colonoscopy and had no evidence of active bleeding. She was restarted on aspirin 81 mg daily. She is on Wellbutrin, Imuran, Synthroid, losartan 100 mg daily, metoprolol tartrate 50 mg twice a day and pravastatin 20 mg daily. PHYSICAL EXAMINATION: Blood pressure 113/60 with a heart rate in the 70s. LUNGS: Clear. Heart regular rate and rhythm, S1, S2. No S3. No rub. ABDOMEN: Soft, nontender. EXTREMITIES: No edema. LAB DATA: Revealed hemoglobin of 7.9. BUN and creatinine of 7 and 0.62. ASSESSMENT: 1. Acute GI bleeding, stabilizing. 2. Status post stenting in March. 3. History of hyperlipidemia. 4. Hypertension. RECOMMENDATIONS: From the cardiac standpoint, the patient should be able to be discharged home soon and follow up as an outpatient with Dr. Conrad. I will continue to hold the Brilinta at this time since her stent was done in the setting of chronic ischemic heart disease and recent bleeding. MMODL / IJN: [id number] /
[2020-09-04 12:14] LABS: HCT 23.8 % (34.0-46.0); HGB 7.8 gm/dL (11.4-16.0); MCHC 32.6 g/dL (31.0-37.0); Mean Platelet Volume 8.8; Platelet Count 151 k/uL (150-450); Poikilocytosis Slight; RBC 2.68 m/uL (3.80-5.40); RDW 15.4 % (11.5-15.5); WBC 4.9 k/uL (3.8-10.6)
--- NOTE | 2020-09-04 13:47 | P.PN ---
Subjective Progress Note Date: 09/04/20 Objective - Vital Signs Vital signs: Vital Signs Temp 97.9 F 09/04/20 09:00 Pulse 77 09/04/20 09:00 Resp 18 09/04/20 09:00 BP 113/66 09/04/20 09:00 Pulse Ox 96 09/04/20 09:00 Intake & Output 09/03/20 09/04/20 09/04/20 18:59 06:59 18:59 Intake Total 1457 Balance 1457 Intake: IV 100 Intake, IV Titration 560 Amount Sodium Chloride 0.9% 1, 560 000 ml @ 80 mls/hr IV . [id number] [facility] Rx#:[id number] Oral 797 Other: Voiding Method Toilet Toilet # Voids 3 3 # Bowel Movements 3 - Labs CBC & Chem 7: 09/04/20 12:04 09/04/20 06:33 Labs: Abnormal Lab Results - Last 24 Hours (Table) 09/03/20 09/04/20 09/04/20 Range/Units 16:24 06:33 06:33 RBC 2.87 L 2.71 L (3.80-5.40) m/uL Hgb 8.4 L 7.9 L (11.4-16.0) gm/dL Hct 25.1 L 24.1 L (34.0-46.0) % Lymphocytes # 0.6 L (1.0-4.8) k/uL Sodium 135 L (137-145) mmol/L Chloride 109 H (98-107) mmol/L 09/04/20 Range/Units 12:04 RBC 2.68 L (3.80-5.40) m/uL Hgb 7.8 L (11.4-16.0) gm/dL Hct 23.8 L (34.0-46.0) % Lymphocytes # (1.0-4.8) k/uL Sodium (137-145) mmol/L Chloride (98-107) mmol/L Assessment and Plan (1) Hematochezia Narrative/Plan: 69-year-old female with multiple medical comorbidities including coronary artery disease on Brilinta after stent placement in March of this year who presented to the hospital with complaints of blood per rectum after colonoscopy earlier in the week. The patient reports multiple episodes of painless bright red blood per rectum. Colonoscopy was significant for polypectomy 2. She denies any nausea, vomiting, hematemesis or coffee-ground emesis. Patient is passing gross red blood per rectum. Suspicion is for post-polypectomy bleed, differential also includes diverticular bleed, AVM or other etiology. Colonoscopy was performed with Endo Clip placed at the site of prior polypectomy with no active bleeding noted at that time but a small amount of blood/clot at the polypectomy site. Current Visit: Yes Status: Acute Code(s): K92.1 - MELENA SNOMED Code(s): 332760024 (2) Anemia associated with acute blood loss Current Visit: Yes Status: Acute Code(s): D62 - ACUTE POSTHEMORRHAGIC ANEMIA SNOMED Code(s): 793153197 (3) Gastrointestinal hemorrhage Current Visit: Yes Status: Acute Code(s): K92.2 - GASTROINTESTINAL HEMORRHAGE, UNSPECIFIED SNOMED Code(s): 29731011 Plan: Supportive care Okay for diet Continue to monitor serial hemoglobin and hematocrit and transfuse as needed Cardiology service following, okay to resume anticoagulation therapy/ antiplatelet therapy at this time No plans for further endoscopic evaluation therapy Thank you for allowing us to participate in the care of the patient
--- NOTE | 2020-09-04 15:44 | PN ---
PROGRESS NOTE DATE OF SERVICE: 09/04/2020 This 69-year-old woman who was admitted with acute lower gastrointestinal bleeding with acute blood loss anemia from bleeding from polypectomy site had Endo clip. The hemoglobin is dropped again today it was 7.9 and 7.8. No active bleeding was noted. Sodium is 130. Patient closely monitored. One unit transfusion has been arranged. So far the patient received 4 units transfusion. Past medical history reviewed. REVIEW OF SYSTEMS: CARDIOVASCULAR SYSTEM: No angina or palpitations. RESPIRATIONS: As mentioned earlier. GI: As mentioned earlier. no dysuria. Nervous system: No numbness, weakness. CURRENT MEDICATIONS: Reviewed and include: Aspirin, Imuran, Wellbutrin, Synthroid, Cozaar, magnesium oxide, Nitrostat, Protonix, Pravachol. PHYSICAL EXAM: Patient is alert, oriented times three. Pulse is 77. Blood pressure is 130/60. Respirations 18. Temperature 97.9, pulse ox 96% on room air. HEENT: Conjunctivae normal. NECK: No JVD. CARDIOVASCULAR: S1, S2 muffled. RESPIRATORY: Breath sounds diminished in the bases. ABDOMEN: Soft, nontender. No mass. LEGS are no edema. NERVOUS SYSTEM: No focal deficits. LABS: WBC 4.2, hemoglobin 7.8, sodium is 135. ASSESSMENT: 1. Acute lower gastrointestinal bleeding with acute blood loss anemia from bleeding from polypectomy site status colonoscopy and Endoclipping. 2. Status post blood transfusion x4. 3. Increased WBC possibly reactive. 4. Relative hypotension. 5. History of recent coronary artery disease/ stent of the left anterior descending. 6. History of recent colonoscopy and polypectomy. 7. Hyponatremia. 8. Increased AST. 9. Hypertension. 10.Osteopenia. 11.History of polymyositis. 12.History of cardiac murmur. 13.History of ascending thoracic aortic aneurysm. 14.History of hypertrophic cardiomyopathy. 15.History of depression. 16.FULL CODE. RECOMMENDATIONS AND DISCUSSION: In this 69 -year-old woman who presented with multiple complex medical issues, we will monitor the patient closely, continue the current medications, management and symptomatic treatment. Otherwise, at this time, I recommend continue with current medications. Aspirin has been initiated. Hemoglobin 7.8. Please note the patient has already received 4 units transfusion. We will continue to monitor. The prognosis guarded because of multiple complex medical issues, we will watch for any further GI bleeding. The patient is stabilized, the patient will be sent home after clearance from Gastroenterology and Cardiology within the next 24 hours. Further recommendations to follow. MMODL / IJN: [id number] /
[2020-09-04] MEDS: SODIUM CHLORIDE 0.9% 1,000 ML IV SCH (19:59)
[2020-09-04 20:43] LABS: HCT 26.1 % (34.0-46.0); MCH 30.4 pg (25.0-35.0); MCHC 34.6 g/dL (31.0-37.0); MCV 87.9 fL (80.0-100.0); Mean Platelet Volume 7.7; Platelet Count 169 k/uL (150-450); Poikilocytosis Slight; RBC 2.97 m/uL (3.80-5.40); WBC 6.1 k/uL (3.8-10.6)
[2020-09-04] MEDS: PRAVASTATIN SODIUM 20 MG TAB PO SCH (22:49)
[2020-09-05] MEDS: SODIUM CHLORIDE 0.9% 1,000 ML IV SCH (00:42)
[2020-09-05 05:08] LABS: HCT 25.3 % (34.0-46.0); HGB 8.7 gm/dL (11.4-16.0); MCH 30.1 pg (25.0-35.0); MCHC 34.3 g/dL (31.0-37.0); MCV 87.8 fL (80.0-100.0); Mean Platelet Volume 7.6; Platelet Count 151 k/uL (150-450); Poikilocytosis Slight; RBC 2.88 m/uL (3.80-5.40); RDW 15.1 % (11.5-15.5); WBC 5.5 k/uL (3.8-10.6)
[2020-09-05 08:25] VITALS: BP 138/75; PULSE 74; RESP 14; TEMP 98.2
[2020-09-05] MEDS: ASPIRIN 81 MG PO SCH (08:31)
[2020-09-05] MEDS: azaTHIOprine 50 MG TAB PO SCH (08:32)
[2020-09-05] MEDS: METOPROLOL TARTRATE 50 MG TAB PO SCH (08:32)
[2020-09-05] MEDS: LEVOTHYROXINE 100 MCG TAB PO SCH (08:32)
[2020-09-05] MEDS: LOSARTAN 50 MG TAB PO SCH (08:32)
[2020-09-05] MEDS: MAGNESIUM OXIDE 400 MG TAB PO SCH (08:32)
[2020-09-05] MEDS: buPROPion XL 150 MG TAB.ER.24H PO SCH (08:33)
[2020-09-05] MEDS: PANTOPRAZOLE 40 MG/10 ML VIAL IVP SCH (08:33)
[2020-09-05 10:30] LABS: Basophils % (A) 1 %; Eosinophils # (A) 0.2 k/uL (0-0.7); Eosinophils % (A) 4 %; HCT 27.7 % (34.0-46.0); Lymphocytes # (A) 0.6 k/uL (1.0-4.8); Lymphocytes % (A) 10 %; MCH 28.9 pg (25.0-35.0); MCHC 32.4 g/dL (31.0-37.0); MCV 89.2 fL (80.0-100.0); Mean Platelet Volume 7.7; Monocytes # (A) 0.4 k/uL (0-1.0); Monocytes % (A) 8 %; Neutrophils # (A) 4.4 k/uL (1.3-7.7); Neutrophils % (A) 77 %; Platelet Count 171 k/uL (150-450); Poikilocytosis Slight; RBC 3.11 m/uL (3.80-5.40); RDW 15.6 % (11.5-15.5); WBC 5.7 k/uL (3.8-10.6)
--- NOTE | 2020-09-05 10:42 | P.PN ---
Subjective Progress Note Date: 09/05/20 CHIEF COMPLAINT: GI bleed HISTORY OF PRESENT ILLNESS: Patient examined this morning at the bedside. She is status post colonoscopy with Endo Clip placement. Hemoglobin is stable at 9.0. She denies chest pain or pressure. Denies shortness of breath. Blood pr essure 138/75. Heart rate in the 70s. PHYSICAL EXAM: VITAL SIGNS: Reviewed. GENERAL: Well-developed in no acute distress. NECK: Supple. No JVD or thyromegaly LUNGS: Respirations even and unlabored. Lungs essentially clear to auscultation bilaterally. HEART: Regular rate and rhythm. S1 and S2 heard. EXTREMITIES: Normal range of motion. No clubbing or cyanosis. Peripheral pulses intact. No lower extremity edema ASSESSMENT: Acute GI bleed, status post colonoscopy with Endo Clip placement at polypectomy site Coronary artery disease with PCI to the LAD, March 2020 Hypertension Hyperlipidemia PLAN: Continue to hold Brilinta at discharge Continue aspirin Patient is stable for discharge from a cardiac perspective She is to follow up outpatient with Dr. Conrad Nurse practitioner note has been reviewed by physician. Signing provider agrees with the documented findings, assessment, and plan of care. Objective - Vital Signs Vital signs: Vital Signs Temp 98.2 F 09/05/20 08:24 Pulse 74 09/05/20 08:24 Resp 14 09/05/20 08:24 BP 138/75 09/05/20 08:24 Pulse Ox 97 09/05/20 08:24 Intake & Output 09/04/20 09/05/20 09/05/20 18:59 06:59 18:59 Intake Total 1120 310 Balance 1120 310 Intake: Oral 1120 Blood Product 0 310 Rc Pheresis 2 As3 Unit 0 310 [id number] Other: Voiding Method Toilet Toilet Toilet # Voids 600 1 - Labs CBC & Chem 7: 09/05/20 10:01 09/04/20 06:33 Labs: Abnormal Lab Results - Last 24 Hours (Table) 09/01/20 09/04/20 09/04/20 Range/Units 16:23 12:04 20:22 RBC 2.68 L 2.97 L (3.80-5.40) m/uL Hgb 7.8 L 9.0 L (11.4-16.0) gm/dL Hct 23.8 L 26.1 L (34.0-46.0) % RDW (11.5-15.5) % Lymphocytes # (1.0-4.8) k/uL Crossmatch See Detail 09/05/20 09/05/20 Range/Units 04:47 10:01 RBC 2.88 L 3.11 L (3.80-5.40) m/uL Hgb 8.7 L 9.0 L (11.4-16.0) gm/dL Hct 25.3 L 27.7 L (34.0-46.0) % RDW 15.6 H (11.5-15.5) % Lymphocytes # 0.6 L (1.0-4.8) k/uL Crossmatch
--- NOTE | 2020-09-05 14:03 | P.PN ---
Subjective Progress Note Date: 09/05/20 Principal diagnosis: GI Bleed The patient was seen and examined at the bedside. She is sitting up in denying any further episodes of rectal bleeding. She denies any abdominal pain, nausea, or vomiting. She is tolerating a heart healthy diet. Plan is for discharge home today. Objective - Vital Signs Vital signs: Vital Signs Temp 98.2 F 09/05/20 08:24 Pulse 74 09/05/20 08:24 Resp 14 09/05/20 08:24 BP 138/75 09/05/20 08:24 Pulse Ox 97 09/05/20 08:24 Intake & Output 09/04/20 09/05/20 09/05/20 18:59 06:59 18:59 Intake Total 1120 310 Balance 1120 310 Intake: Oral 1120 Blood Product 0 310 Rc Pheresis 2 As3 Unit 0 310 [id number] Other: Voiding Method Toilet Toilet Toilet # Voids 600 1 - Exam General appearance: The patient is alert, oriented, in no acute distress. HET: Head is normocephalic and atraumatic. Conjunctiva pink. Sclera anicteric. Neck: Supple without lymphadenopathy. Abdomen: Soft, nontender, nondistended with bowel sounds. No guarding or rigidity. Extremities: Normal skin color and turgor. No pedal edema Neurological: No focal deficits. Alert and oriented 3. - Labs CBC & Chem 7: 09/05/20 10:01 09/04/20 06:33 Labs: Abnormal Lab Results - Last 24 Hours (Table) 09/01/20 09/04/20 09/05/20 Range/Units 16:23 20:22 04:47 RBC 2.97 L 2.88 L (3.80-5.40) m/uL Hgb 9.0 L 8.7 L (11.4-16.0) gm/dL Hct 26.1 L 25.3 L (34.0-46.0) % RDW (11.5-15.5) % Lymphocytes # (1.0-4.8) k/uL Crossmatch See Detail 09/05/20 Range/Units 10:01 RBC 3.11 L (3.80-5.40) m/uL Hgb 9.0 L (11.4-16.0) gm/dL Hct 27.7 L (34.0-46.0) % RDW 15.6 H (11.5-15.5) % Lymphocytes # 0.6 L (1.0-4.8) k/uL Crossmatch Assessment and Plan (1) Hematochezia Narrative/Plan: 69-year-old female with multiple medical comorbidities including coronary artery disease on Brilinta after stent placement in March of this year who presented to the hospital with complaints of blood per rectum after colonoscopy earlier in the week. The patient reports multiple episodes of painless bright red blood per rectum. Colonoscopy was significant for polypectomy 2. She denies any nausea, vomiting, hematemesis or coffee-ground emesis. Patient is passing gross red blood per rectum. Suspicion is for post-polypectomy bleed, differential also includes diverticular bleed, AVM or other etiology. Colonoscopy was performed with Endo Clip placed at the site of prior polypectomy with no active bleeding noted at that time but a small amount of blood/clot at the polypectomy site. Status: Acute Code(s): K92.1 - MELENA SNOMED Code(s): 382275085 (2) Anemia associated with acute blood loss Status: Acute Code(s): D62 - ACUTE POSTHEMORRHAGIC ANEMIA SNOMED Code(s): 040409890 (3) Gastrointestinal hemorrhage Status: Acute Code(s): K92.2 - GASTROINTESTINAL HEMORRHAGE, UNSPECIFIED SNOMED Code(s): 79886301 Plan: Supportive care Okay for diet Cardiology service following, okay to resume anticoagulation therapy/antiplatelet therapy at this time No plans for further endoscopic evaluation therapy Thank you for allowing us to participate in the care of the patient, the patient may be discharged home with follow up with Dr. Valdez in 1-[address] Hilario Valdez I agree with the dictator's note ,documented as a scribe by Vera Rolon.
--- NOTE | 2020-09-06 09:10 | P.DS ---
Providers Date of admission: 09/02/20 11:11 Expected date of discharge: 09/05/20 Attending physician: Neo Trejo Consults: 09/01/20 17:44 Consult Physician Urgent Consulting Provider: Faisal Mcpherson Consult Reason/Comments: GI bleed on Brilinta for cardiac stent Do you want consulting provider notified?: Yes Consult Physician Urgent Consulting Provider: Meagan Valdez Consult Reason/Comments: GI bleed Do you want consulting provider notified?: Yes Primary care physician: Anthony Molina [facility] Course: Final diagnosis Acute lower GI bleeding with acute blood loss anemia from bleeding from polypectomy site status colonoscopy in Endo clipping Status post blood transfusions 4 Increased WBC possibly reactive Relative hypotension History of recent coronary artery disease/stent of the left anterior descending History of recent colonoscopy and polypectomy hyponatremia Increased AST hypertension Osteopenia History of polymyositis History of cardiac murmur History of ascending thoracic aortic aneurysm History of hypertrophic cardiomyopathy history of depression Full code Discharge disposition Patient is being discharged in a stable condition with guarded prognosis to home. Patient will follow-up with Dr. Molina in the outpatient setting upon discharge. Patient also instructed to follow-up with Dr. Conrad cardiology along with GI Dr. Feldman in the outpatient setting. Patient will continue on aspirin and was instructed to continue holding Brilinta until cardiology follow- up. Total time taken is greater than 35 minutes. History of present illness This is a 69-year-old female who was recently admitted with GI bleed and was being closely monitored. GI evaluated the patient and underwent colonoscopy with polypectomy 2 with possible diverticular bleed. Endo Clip was placed during colonoscopy and no further bleeding noted. During hospitalization patient did receive 4 units of PRBCs due to active bleeding. Patient will continue on aspirin although will hold Brilinta until cardiology follow-up in the outpatient setting. Hemoglobin today is 9.0 and patient was provided a prescription for close monitoring of hemoglobin levels. Patient also instructed to follow-up with primary care provider upon discharge. Patient denies any more active bleeding noted and would like to go home today. Currently no reports of chest pain, shortness of breath, or palpitations. Patient is afebrile. No reports of nausea or vomiting and patient is tolerating diet. Patient will be discharged home today. On exam vital signs are stable. Temp is 98.2F, pulse is 74, respirations are 14, blood pressure is 138/75, oxygen saturation is 97% on room air. Cardio S1, S2 are muffled. Respiratory system shows diminished breath sounds at the bases with no wheezing or rhonchi noted. Abdomen is soft and nontender. Nervous system shows no focal deficits. Please refer to medication reconciliation sheet for a list of medications. Patient Condition at Discharge: Stable Plan - Discharge Summary Discharge Rx Participant: No New Discharge Prescriptions: New Metoprolol Tartrate [Lopressor] 50 mg PO BID 30 Days #60 tab Pantoprazole Sodium [Protonix] 40 mg PO DAILY #30 tablet.dr Continue Ascorbic Acid [Vitamin C] 500 mg PO DAILY Aspirin [Adult Low Dose Aspirin EC] 81 mg PO DAILY buPROPion XL [Wellbutrin XL] 150 mg PO DAILY Candesartan Cilexetil [Atacand] 16 mg PO DAILY Ibandronate Sodium [Boniva] 150 mg PO Q30D Multivitamins, Thera [Multivitamin (formulary)] 1 tab PO DAILY Ubidecarenone [Co Q-10] 300 mg PO DAILY Vitamin B Complex 1 tab PO DAILY azaTHIOprine [Imuran] 100 mg PO DAILY Turmeric Root Extract [Turmeric] 500 mg PO DAILY Nitroglycerin Sl Tabs [Nitrostat] 0.4 mg SUBLINGUAL Q5M PRN #25 tab PRN Reason: Chest Pain Magnesium 250 mg PO DAILY Biotin 5,000 mcg PO DAILY Cholecalciferol [Vitamin D3 (25 Mcg = 1000 Iu)] 2,000 unit PO DAILY Evolocumab [Repatha Sureclick] 140 mg SQ Q14D Cyanocobalamin (Vitamin B-12) [Vitamin B-12] 2,500 mcg PO DAILY Pravastatin Sodium [Pravachol] 20 mg PO HS Levothyroxine Sodium [Synthroid] 100 mcg PO SUTUTHSA Levothyroxine Sodium [Synthroid] 150 mcg PO MOWEFR Discontinued Ticagrelor [Brilinta] 90 mg PO BID #180 tab hydroCHLOROthiazide [Hydrodiuril] 12.5 mg PO DAILY Metoprolol Tartrate [Lopressor] 75 mg PO BID Discharge Medication List Ascorbic Acid [Vitamin C] 500 mg PO DAILY 08/25/15 [History] Aspirin [Adult Low Dose Aspirin EC] 81 mg PO DAILY 08/25/15 [History] Candesartan Cilexetil [Atacand] 16 mg PO DAILY 08/25/15 [History] Ibandronate Sodium [Boniva] 150 mg PO Q30D 08/25/15 [History] Multivitamins, Thera [Multivitamin (formulary)] 1 tab PO DAILY 08/25/15 [History] Ubidecarenone [Co Q-10] 300 mg PO DAILY 08/25/15 [History] Vitamin B Complex 1 tab PO DAILY 08/25/15 [History] buPROPion XL [Wellbutrin XL] 150 mg PO DAILY 08/25/15 [History] Turmeric Root Extract [Turmeric] 500 mg PO DAILY 03/16/20 [History] azaTHIOprine [Imuran] 100 mg PO DAILY 03/16/20 [History] Nitroglycerin Sl Tabs [Nitrostat] 0.4 mg SUBLINGUAL Q5M PRN #25 tab 03/19/20 [Rx] Biotin 5,000 mcg PO DAILY 09/01/20 [History] Cholecalciferol [Vitamin D3 (25 Mcg = 1000 Iu)] 2,000 unit PO DAILY 09/01/20 [History] Cyanocobalamin (Vitamin B-12) [Vitamin B-12] 2,500 mcg PO DAILY 09/01/20 [History] Evolocumab [Repatha Sureclick] 140 mg SQ Q14D 09/01/20 [History] Levothyroxine Sodium [Synthroid] 100 mcg PO SUTUTHSA 09/01/20 [History] Levothyroxine Sodium [Synthroid] 150 mcg PO MOWEFR 09/01/20 [History] Magnesium 250 mg PO DAILY 09/01/20 [History] Pravastatin Sodium [Pravachol] 20 mg PO HS 09/01/20 [History] Metoprolol Tartrate [Lopressor] 50 mg PO BID 30 Days #60 tab 09/05/20 [Rx] Pantoprazole Sodium [Protonix] 40 mg PO DAILY #30 tablet. 09/05/20 [Rx] Follow up Appointment(s)/Referral(s): Jr Conrad MD [STAFF PHYSICIAN] - 1 Week Anthony Molina MD [Primary Care Provider] - 1-2 days Christiano Feldman MD [STAFF PHYSICIAN] - 1 Week Ambulatory/Diagnostic Orders: Complete Blood Count w/diff [LAB.AMB] Time Frame: 2 Days, Location: None Selected Activity/Diet/Wound Care/Special Instructions: Activity Limited until follow-up Continue current diet Follow-up with primary care provider upon discharge Continue to hold brilinta Repeat labs in 2-3 days Discharge Disposition: HOME SELF-CARE
== END 2020-09-05 13:03 | disposition home or self-care (01) | DRG 920 ==
LOC: EC 15:49 → 1SOBS 17:43 → OBSVTOIN 09-02 11:11
PROVIDERS: ADMIT Hospitalist; ATTEND Hospitalist
PROC: 30233N1 Transfusion of Nonautologous Red Blood Cells into Peripheral Vein, Percutaneous Approach (ICD-10-PCS; 2020-09-02)
PROC: 0W3P8ZZ Control Bleeding in Gastrointestinal Tract, Via Natural or Artificial Opening Endoscopic (ICD-10-PCS; principal; 2020-09-03 10:00)
DX: K91.840 Postprocedural hemorrhage of a digestive system organ or structure following a digestive system procedure (principal); I42.2 Other hypertrophic cardiomyopathy; K63.3 Ulcer of intestine; D62 Acute posthemorrhagic anemia; E87.1 Hypo-osmolality and hyponatremia; M33.20 Polymyositis, organ involvement unspecified; I71.2 Thoracic aortic aneurysm, without rupture; I95.9 Hypotension, unspecified; E78.5 Hyperlipidemia, unspecified; I34.0 Nonrheumatic mitral (valve) insufficiency; I25.10 Atherosclerotic heart disease of native coronary artery without angina pectoris; K57.30 Diverticulosis of large intestine without perforation or abscess without bleeding; K64.8 Other hemorrhoids; I10 Essential (primary) hypertension; F32.9 Major depressive disorder, single episode, unspecified; M85.80 Other specified disorders of bone density and structure, unspecified site; Z79.82 Long term (current) use of aspirin; Z79.890 Hormone replacement therapy; Z79.83 Long term (current) use of bisphosphonates; Z79.02 Long term (current) use of antithrombotics/antiplatelets; Z79.899 Other long term (current) drug therapy; Z87.19 Personal history of other diseases of the digestive system; Z85.828 Personal history of other malignant neoplasm of skin; Z87.39 Personal history of other diseases of the musculoskeletal system and connective tissue; Z86.69 Personal history of other diseases of the nervous system and sense organs; Z95.5 Presence of coronary angioplasty implant and graft; Z98.890 Other specified postprocedural states; Y83.8 Other surgical procedures as the cause of abnormal reaction of the patient, or of later complication, without mention of misadventure at the time of the procedure
CPT/HCPCS: 36415; 45382; 71045; 80048; 80053; 81003; 82272; 85025; 85027; 85610; 85730; 86850; 86900; 86901; 86920; 96374; 99285

== ENCOUNTER → 2021-08-14 | Outpatient (CLI) | payer MEDICARE ==
--- NOTE | 2021-08-17 11:19 | MM ---
Reason for exam: screening (asymptomatic). Last mammogram was performed 1 year ago. History: Patient is postmenopausal and has history of other cancer at age 56. Took hormonal contraceptives for 3 months. Physical Findings: A clinical breast exam by your physician is recommended on an annual basis and results should be correlated with mammographic findings. MG 3D Screening Mammo W/Cad Bilateral CC and MLO view(s) were taken. Prior study comparison: August 12, 2020, mammogram, performed at [facility]. August 10, 2019, bilateral MG 3d screening mammo w/cad. July 25, 2018, bilateral MG 3d screening mammo w/cad. The breast tissue is heterogeneously dense. This may lower the sensitivity of mammography. Benign oil cyst calcifications. No significant changes when compared with prior studies. ASSESSMENT: Benign, BI-RAD 2 RECOMMENDATION: Routine screening mammogram of both breasts in 1 year.
== END | disposition home or self-care (01) ==
LOC: RADMAMWWP 09:26
PROVIDERS: ATTEND Obstetrics & Gynecology
DX: Z12.31 Encounter for screening mammogram for malignant neoplasm of breast (principal); Z78.0 Asymptomatic menopausal state
CPT/HCPCS: 77063; 77067

== ENCOUNTER → 2022-01-18 | Outpatient (CLI) | payer MEDICARE ==
--- NOTE | 2022-01-19 06:05 | BD ---
EXAMINATION TYPE: Axial Bone Density DATE OF EXAM: 01/18/2022 COMPARISON: 2019 CLINICAL HISTORY: 71 years year old Female. ICD-10 CODE: M85.80 other specified disorders of bone de nsity Height: 5 FT 2 IN Weight: 173 FRAX RISK QUESTIONS: Alcohol (3 or more units per day): NO Family History (Parent hip fracture): NO Glucocorticoids (More than 3mos): YES (Ex: prednisone, prednisolone, methylprednisolone, dexamethasone, and hydrocortisone). History of Fracture in Adulthood: YES Secondary Osteoporosis: 1. Type 1 Diabetes: NO 2. Hyperthyroidism: NO 3. Menopause before 45: YES 4. Malnutrition: NO 5. Chronic liver disease: NO Rheumatoid Arthritis: NO Current Tobacco Use: NO RISK FACTORS HISTORY OF: Surgery to Spine/Hip(right/left)/Wrist (right/left): NO Family History of Osteoporosis: NO Active: YES Diet low in dairy products/other sources of calcium: NO Postmenopausal woman: YES Take estrogen and/or progesterone medications: NONE NOW Lost more than 2 inches in height since high school: YES Frequent falls: NO Poor Health: GOOD Hyperparathyroidism: NO Adrenal Insufficiency: NO MEDICATIONS: Prednisone or other steroids: TOOK FOR OVER 20 YEARS Thyroid Medications: YES Which medication: LEVOTHYROXINE How Long: OVER FIVE YEARS Osteoporosis Medications: YES Which medication: BONIVA How Lon-7 YEARS Additional Medications: BONIVA, CELLCEPT, LEVOTHYROXINE, ATACAND, WELLBUTRIN, HYDROCHLOROTHIAZIDE, PL AVIX, PRAVACHOL, PEP ATHA, NITRO Additional History: POLYMYOSITIS EXAM MEASUREMENTS: Bone mineral densitometry was performed using the Zomazz System. Bone mineral density as measured about the Lumbar spine is: ----- L1-L4(G/cm2): 1.001 T Score Values are as follows: ----- L1: -2.4 ----- L2: -2.6 ----- L3: -1.0 ----- L4: -0.3 ----- L1-L4: -1.5 Bone mineral density has: INCREASED 2.7 % SINCE STUDY OF 2019 Bone mineral density about the R hip (g/cm2): 0.862 Bone mineral density about the L hip (g/cm2): 0.864 T Score values are as follows: -----R Neck: -1.2 -----L Neck: -1.3 -----R Total: -2.0 -----L Total: -1.8 Bone mineral density has: DECREASED -6.0 % SINCE STUDY OF 2019 FRAX%s: The graph provided illustrates a 22.0 % for a major osteoporotic fx and a 2.9 %for the hips p robability for fx in 10 years time. IMPRESSION: Osteopenia (T Score between -2.5 and -1). There is slightly increased risk of fracture and the patient may be considered for treatment. Re-Screen 2-5 years. NOTE: T-SCORE=SD OF THE YOUNG ADULT MEAN.
== END | disposition home or self-care (01) ==
LOC: RADBDWWP 10:55
PROVIDERS: ATTEND Internal Medicine
DX: M85.89 Other specified disorders of bone density and structure, multiple sites (principal)
CPT/HCPCS: 77080

== ENCOUNTER 2022-01-19 11:07 | Day surgery (SDC) | payer MEDICARE ==
[2022-01-17 14:50] VITALS: BMI 29.3
[~2022-01-19 11:07] MED LIST changes: -ALPRAZolam 0.25 MG TAB PO PRN; -ALPRAZolam 0.5 MG TAB PO PRN; -ASPIRIN 325 MG TAB PO STA; +DEXAMETHASONE SOD PHOSPHATE 4 MG/ML 1 ML VIAL IV ONE; +HYDROmorphone 0.5 MG/0.5 ML SYRINGE IVP PRN; +LACTATED RINGERS 1,000 ML IV SCH; +MIDAZOLAM 2 MG/2 ML VIAL IV PRN; -NITROGLYCERIN SL TABS 0.4 MG TAB SUBLINGUAL PRN; +ONDANSETRON 4 MG/2 ML VIAL IVP ONE; +Pre Op ABX Message 1 EACH MISC MISCELLANE ONE; -SODIUM CHLORIDE 0.9% 1,000 ML in EMPTY BAG 1 BAG IV ONE
[2022-01-19] MEDS ORDERED: fentaNYL (PF) 50 MCG/ML 2 ML AMP ONE (11:50)
[2022-01-19] MEDS ORDERED: LIDOCAINE 1% INJ 10MG/ML (20 ML MDV) ONE (11:50)
[2022-01-19] MEDS ORDERED: PROPOFOL 10 MG/ML 20 ML VIAL IV ONE (11:50)
[2022-01-19] MEDS ORDERED: MIDAZOLAM 2 MG/2 ML VIAL ONE (11:50)
[2022-01-19] MEDS ORDERED: BUPIVACAINE (PF) 0.25% 30 ML VIAL SQ ONE (12:29)
[2022-01-19] MEDS ORDERED: LACTATED RINGERS 1,000 ML IV ONE ×3 (12:46→13:30)
[2022-01-19] MEDS ORDERED: fentaNYL (PF) 50 MCG/ML 2 ML AMP IVP ONE (12:49)
[2022-01-19] MEDS ORDERED: MIDAZOLAM 2 MG/2 ML VIAL IVP ONE (12:49)
[2022-01-19 13:32] VITALS: TEMP 97.9
[2022-01-19 14:28] VITALS: RESP 20
[2022-01-19 14:44] VITALS: BP 152/78; PULSE 76
--- NOTE | 2022-01-19 15:24 | P.OP ---
Date of Procedure: 01/19/22 Preoperative Diagnosis: Hallux rigidus left foot Postoperative Diagnosis: Same Procedure(s) Performed: First metatarsal phalangeal joint arthrodesis left foot Implants: Arthrex MaxForce MPJ fusion plate Arthrex AlloMatrix Anesthesia: SAMARA Surgeon: Zeke Katz Estimated Blood Loss (ml): 3 Pathology: none sent Condition: stable Disposition: PACU Description of Procedure: Prior to the patient being brought to the operating room, anesthesia administered a nerve block on the operative leg. Then the patient was brought into the operative room placed on table supine position. Timeout was taken to confirm correct patient identifiers, correct site procedure, and correct site of surgery. When the staff in the room were in agreement with the timeout, the patient was induced and placed under general anesthesia. A well-padded tourniquet was placed on the ankle. The foot was then prepped and draped in usual manner. The foot was exsanguinated with an Esmarch bandage and the tourniquet inflated to 250 mmHg. Attention directed over the first metatarsal phalangeal joint where a linear incision was made between the extensor hallucis longus tendon and the neurovascular structures. The incision was deepened down to the subcutaneous tissue careful to identify, avoid, and retract any neurovascular structures and cauterize any bleeding vessels. Blunt dissection was continued down to the joint capsule. A linear periosteal and capsular incision was made to the extensor hallucis longus tendon. Subperiosteal dissection was performed to expose the base of the proximal phalanx and head of the first metatarsal. A reamer saw was then used to contour the first metatarsal head and remove any of the osteophytes. Then a guidewire was placed centrally into the first metatarsal head and into the medullary canal parallel to the long access of the metatarsal. The concave reamer was then used to remove the articular cartilage and subchondral bone and expose bleeding medullary bone. The guidewire was removed and then used to aggressively fenestrate the head of the first metatarsal to promote bleeding. The guidewire was then inserted at the central aspect of the articular surface of the base of the proximal phalanx. It was advanced into the medullary canal parallel to the long axis of the phalanx. The convex reamer was then used to remove the articular cartilage and subchondral bone and expose bleeding medullary bone. The guidewire was removed and used to aggressively fenestrate this surface also. The wound is then thoroughly irrigated with antibiotic saline. Approximately 1 mL of Arthrex bone morphogenic protein material was placed between the arthrodesis segments. Then the MaxForce plate was placed dorsally across the arthrodesis site utilizing aligned in the plate to placed over the joint surface. It was temporarily fixat ed in position was checked under fluoroscopy. Once position was acceptable locking screws were placed in the distal holes in the proximal phalanx. A guidewire was then placed across the arthrodesis site to hold the joint in its position. Then the drill hole for the compression device of the plate was made the compression device inserted and then utilized to further compress the arthrodesis site. Once that was completed threaded olive wire was used to lock the plate in place and then the second compression screw was placed proximally to lock the plate and further compress the joint. A second nonlocking screw was placed in the proximal portion of the plate into the metatarsal and the last screw placed with locking screw in the most proximal portion of the plate on the metatarsal. Final fluoroscopic imaging showed complete compression across the arthrodesis site and proper alignment of the great toe. The wound is again irrigated with antibiotic saline. Deep closure was done with 2-0 Vicryl. Subcu closure done for Monocryl. And skin closure done with 3-0 Stratafix in a running subcuticular manner. Dermal glue was applied and allowed to dry. Steri-Strips are placed over the incision, then a jumpstart dressing, and then a bulky dry dressing. The tourniquet was released and capillary refill return to all digits on the foot. Patient was then placed in a well-padded, well molded plaster posterior mold/sugar tong splint. The ankle and foot were held in neutral position until the splint was dried. Anesthesia was then reversed and the patient was taken recovery with vital signs stable
== END 2022-01-19 15:27 | disposition home or self-care (01) ==
LOC: OR 11:07
PROVIDERS: ATTEND Podiatrist
DX: M20.22 Hallux rigidus, left foot (principal); E11.9 Type 2 diabetes mellitus without complications; I10 Essential (primary) hypertension; E78.5 Hyperlipidemia, unspecified; E07.9 Disorder of thyroid, unspecified; F32.A Depression, unspecified; K21.9 Gastro-esophageal reflux disease without esophagitis; I71.4 Abdominal aortic aneurysm, without rupture; M32.9 Systemic lupus erythematosus, unspecified; Z79.02 Long term (current) use of antithrombotics/antiplatelets; Z79.899 Other long term (current) drug therapy; Z95.5 Presence of coronary angioplasty implant and graft
CPT/HCPCS: 28750; C1713; J2250; J1100; J0690; J2405; J2001; J3010; J2704

== ENCOUNTER 2022-07-23 10:12 | Emergency (ER) | payer MEDICARE ==
[2022-07-23 10:58] VITALS: RESP 18
[2022-07-23 11:58] LABS: Basophils # (A) 0.1 k/uL (0-0.2); Basophils % (A) 1 %; Eosinophils # (A) 0.2 k/uL (0-0.7); Eosinophils % (A) 2 %; HCT 47.4 % (34.0-46.0); HGB 16.8 gm/dL (11.4-16.0); Lymphocytes # (A) 0.8 k/uL (1.0-4.8); Lymphocytes % (A) 7 %; MCH 30.2 pg (25.0-35.0); MCHC 35.4 g/dL (31.0-37.0); MCV 85.4 fL (80.0-100.0); Monocytes # (A) 0.6 k/uL (0-1.0); Monocytes % (A) 5 %; Neutrophils # (A) 9.4 k/uL (1.3-7.7); Neutrophils % (A) 83 %; Platelet Count 266 k/uL (150-450); RBC 5.55 m/uL (3.80-5.40); RDW 13.2 % (11.5-15.5); WBC 11.2 k/uL (3.8-10.6)
[2022-07-23 12:08] LABS: INR 1.1 (<1.2); Prothrombin Time 11.8 sec (9.0-12.0)
[2022-07-23 12:17] LABS: ALT 36 U/L (4-34); AST 39 U/L (14-36); African American GFR (CKD) >90 (>60 ml/min/1.73 sqM); Albumin 5.1 g/dL (3.5-5.0); Alkaline Phosphatase 76 U/L (38-126); Anion Gap 16 mmol/L; Blood Urea Nitrogen 19 mg/dL (7-17); Carbon Dioxide 27 mmol/L (22-30); Chloride 91 mmol/L (98-107); Glucose 108 mg/dL (74-99); Non-African American GFR(CKD) 78 (>60 ml/min/1.73 sqM); Potassium 3.7 mmol/L (3.5-5.1); Sodium 134 mmol/L (137-145); Total Bilirubin 0.8 mg/dL (0.2-1.3); Total Protein 8.1 g/dL (6.3-8.2)
[2022-07-23] MEDS ORDERED: PANTOPRAZOLE 40 MG/10 ML VIAL IVP STA (14:33)
[2022-07-23] MEDS ORDERED: ONDANSETRON 4 MG/2 ML VIAL IVP STA (14:33)
[2022-07-23] MEDS ORDERED: SODIUM CHLORIDE 0.9% 1,000 ML IV STA (14:41)
--- NOTE | 2022-07-23 14:43 | ED ---
General Adult HPI - General Chief complaint: GI Bleed Stated complaint: Vomiting and dark Stool Time Seen by Provider: 07/23/22 14:28 Source: patient, family, RN notes reviewed Mode of arrival: ambulatory Limitations: no limitations - History of Present Illness Initial comments: Patient is a pleasant 71-year-old female presenting to the emergency department with concern with nausea vomiting. Onset of symptoms was 5 days ago. Vomiting is 2-3 times per day. More in the evening. No abdominal pain. Patient has had a couple of dark looking stools the past couple of days. Patient does take aspirin. No other blood thinners. - Related Data Home Medications Medication Instructions Recorded Confirmed Ascorbic Acid [Vitamin C] 500 mg PO DAILY 08/25/15 01/19/22 Aspirin [Adult Low Dose Aspirin EC] 81 mg PO DAILY 08/25/15 01/19/22 Candesartan Cilexetil [Atacand] 16 mg PO DAILY 08/25/15 01/19/22 Ibandronate Sodium [Boniva] 150 mg PO Q30D 08/25/15 01/19/22 Multivitamins, Thera [Multivitamin 1 tab PO DAILY 08/25/15 01/19/22 (formulary)] Ubidecarenone [Co Q-10] 200 mg PO DAILY 08/25/15 01/19/22 Vitamin B Complex 1 tab PO DAILY 08/25/15 01/19/22 buPROPion XL [Wellbutrin XL] 150 mg PO DAILY 08/25/15 01/19/22 Turmeric Root Extract [Turmeric] 500 mg PO DAILY 03/16/20 01/19/22 Cholecalciferol [Vitamin D3 (25 2,000 unit PO DAILY 09/01/20 01/19/22 Mcg = 1000 Iu)] Evolocumab [Repatha Sureclick] 140 mg SQ Q30D 09/01/20 01/19/22 Levothyroxine Sodium [Synthroid] 25 mcg PO GARZA 09/01/20 01/19/22 Levothyroxine Sodium [Synthroid] 50 mcg PO MOTUWETHFRSA 09/01/20 01/19/22 Magnesium 250 mg PO HS 09/01/20 01/19/22 Clopidogrel [Plavix] 75 mg PO DAILY 01/17/22 01/19/22 Metoprolol Succinate (ER) [Toprol 100 mg PO HS 01/17/22 01/19/22 Xl] Pravastatin Sodium [Pravachol] 5 mg PO HS 01/17/22 01/19/22 hydroCHLOROthiazide [Hydrodiuril] 25 mg PO DAILY 01/17/22 01/19/22 mycophenolate mofetiL [Cellcept] 1,500 mg PO BID 01/17/22 01/19/22 Previous Rx's Medication Instructions Recorded Nitroglycerin Sl Tabs [Nitrostat] 0.4 mg SUBLINGUAL Q5M PRN #25 tab 03/19/20 Pantoprazole Sodium [Protonix] 40 mg PO DAILY #30 tablet. 09/05/20 HYDROcodone/APAP 5-325MG [[place] 1 tab PO Q6HR PRN #30 tab 01/19/22 5-325] Famotidine [Pepcid] 20 mg PO BID #30 tablet 07/23/22 Ondansetron Odt [Zofran Odt] 4 mg PO Q8HR PRN #10 tab 07/23/22 Allergies Allergy/AdvReac Type Severity Reaction Status Date / Time No Known Allergies Allergy Verified 07/23/22 10:54 Review of Systems ROS Statement: Those systems with pertinent positive or pertinent negative responses have been documented in the HPI. ROS Other: All systems not noted in ROS Statement are negative. Constitutional: Denies: fever Eyes: Denies: eye pain ENT: Denies: ear pain Respiratory: Denies: cough Cardiovascular: Denies: chest pain Endocrine: Denies: fatigue Gastrointestinal: Reports: as per HPI, nausea, vomiting Genitourinary: Denies: dysuria Musculoskeletal: Denies: back pain Skin: Denies: rash Neurological: Denies: weakness Past Medical History Past Medical History: Cancer, GI Bleed, Hyperlipidemia, Hypertension, Osteoarthritis (OA), Thyroid Disorder Additional Past Medical History / Comment(s): LOWER GI BLEED. BASAL SKin CA. OSTEOPENIA. polymyositis. HEART MURMUR, ASCENDING THORACIC AORTIC ANEURSYM-being monitored, HYPERTROPHIC CARDIOMYOPATHY, lupus History of Any Multi-Drug Resistant Organisms: None Reported Past Surgical History: Heart Catheterization, Heart Catheterization With Stent Additional Past Surgical History / Comment(s): SINUS. CARPAL TUNNEL CARMINE. BASAL SKIN CA ON BACK,LT FOOT TOE STRAIGHTENED, BLEPHAROPLASTY, cataracts removed Past Anesthesia/Blood Transfusion Reactions: Postoperative Nausea & Vomiting (PONV) Additional Past Anesthesia/Blood Transfusion Reaction / Comment(s): INCLUDES IV SEDATION. Date of Last Stent Placement:: March 2020 Past Psychological History: Depression Smoking Status: Never smoker Past Alcohol Use History: None Reported Past Drug Use History: None Reported - Past Family History Mother Family Medical History: No Reported History General Exam Limitations: no limitations General appearance: alert, in no apparent distress Head exam: Present: normocephalic Eye exam: Present: normal appearance Neck exam: Present: normal inspection Respiratory exam: Present: normal lung sounds bilaterally Cardiovascular Exam: Present: regular rate, normal rhythm Expanded Peripheral pulses: 2+: Dorsalis Pedis (R), Dorsalis Pedis (L) GI/Abdominal exam: Present: soft. Absent: distended, tenderness, guarding, rebound, rigid Rectal exam: Present: normal inspection. Absent: black stool, bloody stool Extremities exam: Present: normal inspection Neurological exam: Present: alert Psychiatric exam: Present: normal affect, normal mood Skin exam: Present: normal color Course Vital Signs 07/23/22 07/23/22 10:54 14:56 Temperature 97.8 F Pulse Rate 76 77 Respiratory 18 18 Rate Blood Pressure 143/90 143/84 O2 Sat by Pulse 97 100 Oximetry EKG Findings - EKG Comments: EKG Findings:: Sinus rhythm rate 69. VA 168. QRS 113. QT 440. QTc 459. Left axis. LVH. Repolarization change Medical Decision Making - Medical Decision Making Patient reevaluated and resting comfortably in bed. Patient is feeling better. Patient discussion had regarding admission versus going home. Patient has brown-appearing stool without gross melena or hematochezia. Hemoglobin is improved from previous. Patient is feeling well and would like to try to go home. Patient is advised prescription or [id number] Pepcid as well as Zofran prescription. Patient advised to return for worsening symptoms, black or red stools, or vomiting blood or not tolerating oral intake - Lab Data Result diagrams: 07/23/22 11:42 07/23/22 11:42 Lab Results 07/23/22 07/23/22 07/23/22 Range/Units 11:42 11:42 11:42 WBC 11.2 H (3.8-10.6) k/uL RBC 5.55 H (3.80-5.40) m/uL Hgb 16.8 H (11.4-16.0) gm/dL Hct 47.4 H (34.0-46.0) % MCV 85.4 (80.0-100.0) fL MCH 30.2 (25.0-35.0) pg MCHC 35.4 (31.0-37.0) g/dL RDW 13.2 (11.5-15.5) % Plt Count 266 (150-450) k/uL MPV 8.0 Neutrophils % 83 % Lymphocytes % 7 % Monocytes % 5 % Eosinophils % 2 % Basophils % 1 % Neutrophils # 9.4 H (1.3-7.7) k/uL Lymphocytes # 0.8 L (1.0-4.8) k/uL Monocytes # 0.6 (0-1.0) k/uL Eosinophils # 0.2 (0-0.7) k/uL Basophils # 0.1 (0-0.2) k/uL PT 11.8 (9.0-12.0) sec INR 1.1 (<1.2) Sodium 134 L (137-145) mmol/L Potassium 3.7 (3.5-5.1) mmol/L Chloride 91 L (98-107) mmol/L Carbon Dioxide 27 (22-30) mmol/L Anion Gap 16 mmol/L BUN 19 H (7-17) mg/dL Creatinine 0.78 (0.52-1.04) mg/dL Est GFR (CKD-EPI)AfAm >90 (>60 ml/min/1.73 sqM) Est GFR (CKD-EPI)NonAf 78 (>60 ml/min/1.73 sqM) Glucose 108 H (74-99) mg/dL Calcium 11.0 H (8.4-10.2) mg/dL Total Bilirubin 0.8 (0.2-1.3) mg/dL AST 39 H (14-36) U/L ALT 36 H (4-34) U/L Alkaline Phosphatase 76 (38-126) U/L Troponin I (0.000-0.034) ng/mL Total Protein 8.1 (6.3-8.2) g/dL Albumin 5.1 H (3.5-5.0) g/dL Stool Occult Blood (Negative) 07/23/22 07/23/22 Range/Units 11:42 14:19 WBC (3.8-10.6) k/uL RBC (3.80-5.40) m/uL Hgb (11.4-16.0) gm/dL Hct (34.0-46.0) % MCV (80.0-100.0) fL MCH (25.0-35.0) pg MCHC (31.0-37.0) g/dL RDW (11.5-15.5) % Plt Count (150-450) k/uL MPV Neutrophils % % Lymphocytes % % Monocytes % % Eosinophils % % Basophils % % Neutrophils # (1.3-7.7) k/uL Lymphocytes # (1.0-4.8) k/uL Monocytes # (0-1.0) k/uL Eosinophils # (0-0.7) k/uL Basophils # (0-0.2) k/uL PT (9.0-12.0) sec INR (<1.2) Sodium (137-145) mmol/L Potassium (3.5-5.1) mmol/L Chloride (98-107) mmol/L Carbon Dioxide (22-30) mmol/L Anion Gap mmol/L BUN (7-17) mg/dL Creatinine (0.52-1.04) mg/dL Est GFR (CKD-EPI)AfAm (>60 ml/min/1.73 sqM) Est GFR (CKD-EPI)NonAf (>60 ml/min/1.73 sqM) Glucose (74-99) mg/dL Calcium (8.4-10.2) mg/dL Total Bilirubin (0.2-1.3) mg/dL AST (14-36) U/L ALT (4-34) U/L Alkaline Phosphatase (38-126) U/L Troponin I <0.012 (0.000-0.034) ng/mL Total Protein (6.3-8.2) g/dL Albumin (3.5-5.0) g/dL Stool Occult Blood Positive H (Negative) Disposition Clinical Impression: Vomiting Disposition: HOME SELF-CARE Condition: Stable Instructions (If sedation given, give patient instructions): Gastrointestinal Bleeding (ED), Acute Nausea and Vomiting (ED) Additional Instructions: Prescription sent to pharmacy. Please do follow-up with your primary care physician in the next day or 2 for recheck. Return for bloody or black stools, increased vomiting, vomiting blood, increased pain, worsening symptoms or any other concern. Prescriptions: Famotidine [Pepcid] 20 mg PO BID #30 tablet Ondansetron Odt [Zofran Odt] 4 mg PO Q8HR PRN #10 tab PRN Reason: Nausea Is patient prescribed a controlled substance at d/c from ED?: No Referrals: Wilfredo Tovar MD [Primary Care Provider] - 1-2 days Time of Disposition: 15:39
[2022-07-23 16:12] VITALS: BP 136/83; PULSE 75; TEMP 98
== END 2022-07-23 16:12 | disposition home or self-care (01) ==
LOC: EC 10:12
DX: R11.10 Vomiting, unspecified (principal)
CPT/HCPCS: 36415; 93005; 80053; 84484; 85025; 85610; 82272; 99284; 96374; 96375; 96361; J2405; C9113

== ENCOUNTER → 2022-08-15 | Outpatient (CLI) | payer MEDICARE ==
--- NOTE | 2022-08-16 09:24 | MM ---
Reason for Exam: Screening (asymptomatic). Last screening mammogram was performed 12 month(s) ago. Patient History: Menarche at age 14. First Full-Term at age 28. Postmenopausal. Other cancer, age 56. Hormonal Contraceptives for 3 months. Risk Values: Sudha 5 year model risk: 1.9%. NCI Lifetime model risk: 5.9%. Prior Study Comparison: 07/04/2017 Bilateral Diagnostic Mammogram, [facility]. 07/25/2018 Bilateral Screening Mammogram, [facility]. 08/10/2019 Bilateral Screening Mammogram, [facility]. 08/12/2020 Screening Mammogram, [facility]. 08/14/2021 Bilateral Screening Mammogram, [facility]. Tissue Density: The breast tissue is heterogeneously dense. This may lower the sensitivity of mammography. Findings: Analyzed By CAD. There is no suspicious group of microcalcifications or new suspicious mass in either breast. Benign oil cyst calcifications. No significant change in prior studies. Overall Assessment: Benign, BI-RAD 2 Management: Screening Mammogram of both breasts in 1 year. A clinical breast exam by your physician is recommended on an annual basis and results should be correlated with mammographic findings. Electronically signed and approved by: Nima Hargrove D.O.
== END | disposition home or self-care (01) ==
LOC: RADMAMWWP 09:20
PROVIDERS: ATTEND Obstetrics & Gynecology
DX: Z12.31 Encounter for screening mammogram for malignant neoplasm of breast (principal); Z78.0 Asymptomatic menopausal state
CPT/HCPCS: 77063; 77067

== ENCOUNTER → 2022-09-13 | Outpatient (CLI) | payer MEDICARE ==
[2022-09-13 17:57] LABS: HCT 41.8 % (37.2-46.3); HGB 13.8 g/dL (12.0-15.0); MCH 30.3 pg (27.0-32.0); MCV 91.7 fL (80.0-97.0); Mean Platelet Volume 10.2 fL (9.5-12.2); NRBC Per 100 WBC 0 /100 WBCS (0.0-0.0); Platelet Count 306 X 10*3/uL (140-440); RBC 4.56 X 10*6/uL (4.10-5.20); RDW 13.3 % (11.5-14.5); WBC 10.15 X 10*3/uL (4.50-10.00)
[2022-09-13 18:09] LABS: African American GFR (CKD) 87.2 (60.0-200.0); Anion Gap 9.2 mmol/L (10.00-18.00); Blood Urea Nitrogen 17.3 mg/dL (9.0-27.0); Carbon Dioxide 24.8 mmol/L (20.0-27.5); Non-African American GFR(CKD) 75.2 (60.0-200.0); Potassium 4.9 mmol/L (3.5-5.5)
== END | disposition home or self-care (01) ==
LOC: LABPAT 12:41
PROVIDERS: ATTEND Internal Medicine Interventional Cardiology
DX: Z01.812 Encounter for preprocedural laboratory examination (principal); R94.39 Abnormal result of other cardiovascular function study
CPT/HCPCS: 36415; 80051; 82565; 84520; 85027

== ENCOUNTER 2022-09-14 08:44 | Day surgery (SDC) | payer MEDICARE ==
[~2022-09-14 08:44] MED LIST changes: +ALPRAZolam 0.25 MG TAB PO PRN; +ALPRAZolam 0.5 MG TAB PO PRN; +ASPIRIN 325 MG TAB PO STA; +ATORVASTATIN 80 MG TAB PO STA; -DEXAMETHASONE SOD PHOSPHATE 4 MG/ML 1 ML VIAL IV ONE; +HEPARIN SODIUM,PORCINE 10,000 UNIT in SODIUM CHLORIDE 0.9% 1,000 ML IRRIGATION PRN; +HEPARIN SODIUM,PORCINE 2,500 UNIT in SODIUM CHLORIDE 0.9% 250 ML IRRIGATION PRN; -HYDROmorphone 0.5 MG/0.5 ML SYRINGE IVP PRN; -LACTATED RINGERS 1,000 ML IV SCH; -MIDAZOLAM 2 MG/2 ML VIAL IV PRN; +NITROGLYCERIN SL TABS 0.4 MG TAB SUBLINGUAL PRN; -ONDANSETRON 4 MG/2 ML VIAL IVP ONE; -Pre Op ABX Message 1 EACH MISC MISCELLANE ONE
[2022-09-14] MEDS: SODIUM CHLORIDE 0.9% 1,000 ML in EMPTY BAG 1 BAG IV SCH ×2 (09:20→19:20)
[2022-09-14] MEDS ORDERED: HEPARIN SODIUM 1,000 UN/ML (10ML VL) ONE ×2 (13:34→18:04)
[2022-09-14] MEDS ORDERED: VERAPAMIL 2.5 MG/ML 2 ML AMP ONE ×2 (13:34→17:56)
[2022-09-14] MEDS ORDERED: ONDANSETRON 4 MG/2 ML VIAL IVP ONE (14:41)
[2022-09-14] MEDS ORDERED: fentaNYL (PF) 50 MCG/ML 2 ML AMP ONE (18:04)
[2022-09-14] MEDS ORDERED: MIDAZOLAM 2 MG/2 ML VIAL IV ONE (18:07)
[2022-09-14] MEDS ORDERED: fentaNYL (PF) 50 MCG/ML 2 ML AMP IV ONE (18:10)
[2022-09-14] MEDS: LIDOCAINE 1% INJ 10MG/ML (30 ML VIAL-PF) SQ ONE ×2 (18:11→18:14)
[2022-09-14] MEDS ORDERED: RX INFO: IV CONTRAST WAS GIVEN 1 EACH MISC MISCELLANE PRN (18:27)
[2022-09-14] MEDS ORDERED: SODIUM CHLORIDE 0.9% 1,000 ML IV SCH (18:30)
--- NOTE | 2022-09-14 18:32 | P.PCN ---
Date of Procedure: 09/14/22 Operative Findings: CARDIAC CATHETERIZATION PERFORMING PHYSICIAN: Faisal Mcpherson MD, RPVI PROCEDURE PERFORMED: 1. Selective right and left coronary angiogram 2. Left heart catheterization INDICATION: This is a 71-year-old female patient who sees Dr. Conrad regularly with a past medical history significant for CAD with prior stenting of the LAD was experiencing symptoms of chest pain and shortness of breath and she underwent myocardial perfusion imaging stress test came in to be abnormal showing reversibility/ischemia. In the light of that heart catheterization was advised COMPLICATION: None APPROACH: Right common femoral artery LEVEL OF SEDATION: Moderate to sedation length of 13 minutes PROCEDURE DESCRIPTION: After obtaining an informed consent, the patient was brought to cardiac supervisor labor gang. Local anesthesia was performed using lidocaine subcutaneously. The right common femoral artery was cannulated using Seldinger technique, the guidewire passed easily, following that we advanced a 6 Guyanese sheath dilator assembly, the wire and dilator were removed and sheath was flushed. Selective right and left coronary angiogram using a 6-Guyanese JR4 and JL catheters. Following that we did left heart catheterization using 6-Guyanese pigtail catheter. The procedure was completed there was no complication. SELECTIVE CORONARY ANGIOGRAM: The right coronary artery: Large caliber vessel and a dominant vessel. The proximal RCA has mild disease only. The mid RCA has a tubular lesion appears to be in the range of 40-50%. The RCA distally appeared to have mild disease only and bifurcates into PDA and PLV branches both appeared to be angiographically normal Left main: Large caliber vessel. Its angiographically normal. Bifurcates into an LCx and LAD The left circumflex: Large caliber vessel. Nondominant vessel. The LCx is angiographically normal. It gives rises into a large OM branch which appears to be angiographically normal. The left anterior descending artery: Large caliber vessel. The proximal LAD is a stented and the stent is patent. The LAD proximally gives rises into a large diagonal branch which seems to be angiographically normal. The mid and distal LAD appears to be angiographically normal. HEMODYNAMICS: The LVEDP was 16 mmHg was no significant gradient across the aortic valve CONCLUSION: 1. Patent stent in the proximal left anterior descending artery 2. Intermediate disease involving the mid RCA with a tubular lesion appeared to be in the range of 50% 3. Slightly elevated left-sided filling pressure POSTPROCEDURE MANAGEMENT: Consider medical treatment at this point. Consider FFR of the RCA if the patient remains symptomatic.
[2022-09-14 23:22] VITALS: BP 143/79; PULSE 73; RESP 18; TEMP 97.4
== END 2022-09-14 23:23 | disposition home or self-care (01) ==
LOC: CATHCVL 08:44 → 6NMEDSUR 18:28 → CATHCVL 23:23
PROVIDERS: ATTEND Internal Medicine Interventional Cardiology
DX: I25.10 Atherosclerotic heart disease of native coronary artery without angina pectoris (principal); R94.39 Abnormal result of other cardiovascular function study; Z95.5 Presence of coronary angioplasty implant and graft
CPT/HCPCS: 93458; J2250; J2405; J2001; J3010

== ENCOUNTER → 2023-08-30 | Outpatient (CLI) | payer MEDICARE ==
--- NOTE | 2023-09-02 08:00 | MM ---
Reason for Exam: Screening (asymptomatic). Last screening mammogram was performed 12 month(s) ago. Patient History: Menarche at age 14. First Full-Term at age 28. Postmenopausal. Other cancer, age 56. Hormonal Contraceptives for 3 months. Risk Values: Sudha 5 year model risk: 1.9%. NCI Lifetime model risk: 5.6%. Prior Study Comparison: 08/12/2020 Screening Mammogram, [facility]. 08/14/2021 Bilateral Screening Mammogram, [facility]. 08/15/2022 Bilateral MG 3D screening mammo w/cad, [facility]. Tissue Density: The breast tissue is heterogeneously dense. This may lower the sensitivity of mammography. Findings: Analyzed By CAD. There is no suspicious group of microcalcifications or new suspicious mass. Benign-appearing calcifications bilaterally. Overall Assessment: Benign, BI-RAD 2 Management: Screening Mammogram of both breasts in [address] [facility] will attempt to contact patient to return for supplemental views and ultrasound if indicated. Patient should continue monthly self-breast exams. A clinical breast exam by your physician is recommended on an annual basis. This exam should not preclude additional follow-up of suspicious palpable abnormalities. Note on Sudha scores and lifetime risk: 1. A Sudha score greater than 3% is considered moderate risk. If this is the case, consider specialist referral to assess eligibility for a risk reducing agent. 2. If overall lifetime risk for the development of breast cancer is 20% or higher, the patient may qualify for future screening with alternating mammogram and breast MRI. Electronically signed and approved by: Trevor Gonzalez DO
== END | disposition home or self-care (01) ==
LOC: RADMAMWWP 11:39
PROVIDERS: ATTEND Internal Medicine
DX: Z12.31 Encounter for screening mammogram for malignant neoplasm of breast (principal); Z78.0 Asymptomatic menopausal state
CPT/HCPCS: 77063; 77067

== ENCOUNTER → 2024-01-27 | Outpatient (CLI) | payer MEDICARE ==
[2024-01-27 15:54] LABS: Blood Urea Nitrogen 13.7 mg/dL (9.0-27.0); Carbon Dioxide 25.8 mmol/L (21.6-31.8); Chloride 99 mmol/L (96-109); Potassium 4.7 mmol/L (3.5-5.5); Sodium 134 mmol/L (135-145)
[2024-01-27 17:06] LABS: HCT 41.5 % (37.2-46.3); HGB 13.4 g/dL (12.0-15.0); MCH 29.2 pg (27.0-32.0); MCHC 32.3 g/dL (32.0-37.0); MCV 90.4 FL (80.0-97.0); Mean Platelet Volume 11.7 FL (9.5-12.2); NRBC Per 100 WBC 0 X 10*3/uL (0.00-0.01); Platelet Count 279 X 10*3/uL (140-440); RBC 4.59 X 10*6/uL (4.10-5.20); RDW 12.9 % (11.5-14.5); WBC 7.64 X 10*3/uL (4.50-10.00)
== END | disposition home or self-care (01) ==
LOC: LABPAT 11:36
PROVIDERS: ATTEND Internal Medicine Interventional Cardiology
DX: Z01.812 Encounter for preprocedural laboratory examination (principal); R94.39 Abnormal result of other cardiovascular function study
CPT/HCPCS: 36415; 80051; 82565; 84520; 85027

== ENCOUNTER 2024-02-04 08:39 | Day surgery (SDC) | payer MEDICARE ==
[~2024-02-04 08:39] MED LIST changes: -ATORVASTATIN 80 MG TAB PO STA; -HEPARIN SODIUM,PORCINE 10,000 UNIT in SODIUM CHLORIDE 0.9% 1,000 ML IRRIGATION PRN; -HEPARIN SODIUM,PORCINE 2,500 UNIT in SODIUM CHLORIDE 0.9% 250 ML IRRIGATION PRN; +SODIUM CHLORIDE 0.9% 1,000 ML in EMPTY BAG 1 BAG IV SCH
[2024-02-04] MEDS: SODIUM CHLORIDE 0.9% 1,000 ML IV ONE (08:54)
[2024-02-04 09:34] VITALS: RESP 16; TEMP 97.9
[2024-02-04] MEDS ORDERED: VERAPAMIL 2.5 MG/ML 2 ML AMP ONE (10:00)
[2024-02-04] MEDS ORDERED: HEPARIN SODIUM 1,000 UN/ML (10ML VL) ONE (10:18)
[2024-02-04] MEDS: MIDAZOLAM 2 MG/2 ML VIAL IVP ONE (10:30)
[2024-02-04] MEDS: LIDOCAINE 1% INJ 10MG/ML (20 ML MDV) SQ ONE (10:34)
[2024-02-04] MEDS: fentaNYL (PF) 50 MCG/ML 2 ML AMP IVP ONE (10:35)
[2024-02-04] MEDS ORDERED: fentaNYL (PF) 50 MCG/ML 2 ML AMP ONE (10:35)
[2024-02-04] MEDS ORDERED: LIDOCAINE 1% INJ 10MG/ML (20 ML MDV) ONE (10:36)
[2024-02-04] MEDS: IOPAMIDOL-370 100ML BTL INJ ONE (10:50)
[2024-02-04] MEDS ORDERED: RX INFO: IV CONTRAST WAS GIVEN 1 EACH MISC MISCELLANE PRN (10:55)
[2024-02-04] MEDS ORDERED: SODIUM CHLORIDE 0.9% 1,000 ML IV SCH (11:00)
--- NOTE | 2024-02-04 11:01 | P.PCN ---
Date of Procedure: 02/04/24 Operative Findings: CARDIAC CATHETERIZATION PERFORMING PHYSICIAN: Faisal Mcpherson MD, RPVI PROCEDURE PERFORMED: 1. Selective right and left coronary angiogram 2. Left heart catheterization 3. Ultrasound-guided access of the right common femoral artery and selective right common femoral artery angiogram INDICATION: Symptomatic 73-year-old female patient who underwent a stress test that showed inferior ischemia COMPLICATION: None APPROACH: Right common femoral artery LEVEL OF SEDATION: Moderate with sedation in length of 17 minutes PROCEDURE DESCRIPTION: After obtaining an informed consent, the patient was brought to cardiac dental laboratory technology teacher. Local anesthesia was performed using lidocaine subcutaneously. The right common femoral artery was cannulated using Seldinger technique, under ultrasound guidance, the guidewire passed easily, following that we advanced a 6 Malian sheath dilator assembly, the wire and dilator were removed and sheath was flushed. Selective right and left coronary angiogram using a 6-Malian JR4 and JL catheters. Following that we did left heart catheterization using 6-Malian pigtail catheter. The procedure was completed there was no complication. SELECTIVE CORONARY ANGIOGRAM: The right coronary artery: Large-caliber vessel and a dominant vessel. The RCA has mild to moderate diffuse disease with no high-grade stenosis. The disease appears to be the same as before Left main: Has mild disease only. Bifurcates into an LCx and LAD The left circumflex: Large-caliber vessel nondominant vessel. Gives rise into an OM1 which has an ostial lesion appears to be in the range of 60 to 70% has not changed compared to before The left anterior descending artery: Large-caliber vessel. The LAD is stented in the proximal to midportion and the stent appears to be patent. The LAD gives rise into a diagonal branch which is a large-caliber vessel appears to be normal HEMODYNAMICS: The LVEDP was 15 mmHg with no significant gradient across aortic valve CONCLUSION: 1. Intermediate disease involving the mid RCA appears to be the same as before 2. Intermediate to severe disease involving OM1 also appears to be the same as before 3. Patent stent in the left anterior descending artery 4. Normal left-sided filling pressure POSTPROCEDURE MANAGEMENT: Consider medical treatment including risk factors modification and follow-up with the patient
[2024-02-04 13:18] VITALS: BP 166/79; PULSE 70
[2024-02-04] MEDS: ONDANSETRON 4 MG/2 ML VIAL ONE (15:19)
== END 2024-02-04 15:59 ==
LOC: CATHCVL 08:39
PROVIDERS: ATTEND Internal Medicine Interventional Cardiology
DX: I25.10 Atherosclerotic heart disease of native coronary artery without angina pectoris (principal); I34.0 Nonrheumatic mitral (valve) insufficiency; I10 Essential (primary) hypertension; E78.5 Hyperlipidemia, unspecified; M60.9 Myositis, unspecified; Z82.49 Family history of ischemic heart disease and other diseases of the circulatory system; Z79.82 Long term (current) use of aspirin; Z95.5 Presence of coronary angioplasty implant and graft; Z79.899 Other long term (current) drug therapy
CPT/HCPCS: 93458; 76937; C1760; C1769 ×2; C1894 ×2; J2250; J2405; J2001; J3010; Q9967

== ENCOUNTER → 2024-02-21 | Outpatient (CLI) | payer MEDICARE | END | disposition home or self-care (01) | LOC: LABWHC1 16:24 | PROVIDERS: ATTEND Internal Medicine Clinical Cardiac Electrophysiology | DX: M60.9 Myositis, unspecified (principal) | CPT/HCPCS: 36415; 82085; 82550 ==

== ENCOUNTER → 2024-03-27 | Outpatient (CLI) | payer MEDICARE ==
--- NOTE | 2024-03-27 10:59 | CT ---
EXAMINATION TYPE: CT hip LT wo con DATE OF EXAM: 03/27/2024 COMPARISON: None HISTORY: LT hip pain due to prosthetic, hx polymyositis. CT DLP: 672.70 mGycm Automated exposure control for dose reduction was used. Unenhanced CT left hip in the axial, coronal and sagittal planes with bone and soft tissue window settings submitted. FINDINGS: Left hip dynamic compression screw and intramedullary jarrett are in place. Soft tissue heterotopic ossif ication adjacent to the greater trochanteric component. No evidence for loosening or periprosthetic i nfection. No evidence for acute fracture. Mild degenerative joint space narrowing. No evidence of bon y destructive process. Moderate degenerative changes lower lumbar spine. IMPRESSION: Soft tissue heterotopic ossification adjacent to the greater trochanteric component.
== END | disposition home or self-care (01) ==
LOC: RADCTMAIN 07:34
PROVIDERS: ATTEND Orthopaedic Surgery
DX: M70.62 Trochanteric bursitis, left hip (principal); M61.59 Other ossification of muscle, multiple sites; T84.84XA Pain due to internal orthopedic prosthetic devices, implants and grafts, initial encounter
CPT/HCPCS: 85379; 85652; 86140

== ENCOUNTER 2024-04-29 16:18 | Emergency (ER) | payer MEDICARE ==
[2024-04-29 16:26] VITALS: TEMP 98.4
--- NOTE | 2024-04-29 16:45 | ED ---
Recheck HPI - General Source: patient, EMS, RN notes reviewed Mode of arrival: EMS Limitations: no limitations <Tiffanie Randle - Last Filed: 04/29/24 19:24> <Bijal Dowling - Last Filed: 04/29/24 21:44> - General Chief Complaint: Recheck/Abnormal Lab/Rx Stated Complaint: abn labs Time Seen by Provider: 04/29/24 16:31 - History of Present Illness Initial Comments: This is a 73-year-old female presents emergency department from rehabilitation [place] for chief complaint of low hemoglobin. Was having lab work completed for polymyositis and it was found that she has a hemoglobin of less than 7. Patient states that since she has been seen and rehabilitation she has been experiencing foul-smelling and dark-colored stools. She denies bright red stools. She states that she has been feeling nauseated over the past few weeks as well with no episodes of emesis, hematemesis, coffee-ground emesis. Patient does have a history of hematochezia in 2019 where colonoscopy was completed. Patient states that she has been having mild abdominal pain most notable in the epigastric and left lower quadrant. Denies history of diverticulitis, diverticulosis. (Tiffanie Randle) - Related Data Home Medications Medication Instructions Recorded Confirmed Ascorbic Acid [Vitamin C] 500 mg PO DAILY@0800 08/25/15 04/29/24 Candesartan Cilexetil [Atacand] 16 mg PO DAILY@0800 08/25/15 04/29/24 Evolocumab [Repatha Sureclick] 140 mg SQ QMONTHLY 09/01/20 04/29/24 hydroCHLOROthiazide [Hydrodiuril] 25 mg PO DAILY@0800 01/17/22 04/29/24 mycophenolate mofetiL [Cellcept] 1,000 mg PO BID@0800,1700 01/17/22 04/29/24 Ipratropium [place] 0.06%Nasal 1 spray EA NOSTRIL DAILY PRN 09/12/22 04/29/24 [Atrovent Nasal 0.06%] Estrogens, Conjugated Cream 0.5 gm VAGINAL Q2D 11/30/22 04/29/24 [Premarin Vaginal Cream] Metoprolol Succinate (ER) [Toprol 100 mg PO DAILY@0800 11/30/2224/24 XL] buPROPion HCL [buPROPion HCL Xl] 150 mg PO DAILY@0811/30/22 04/29/24 Colchicine 0.6 mg PO DAILY@0800 PRN 04/07/24 04/29/24 Famotidine [Pepcid] 20 mg PO HS 04/07/24 04/29/24 Aspirin 81 mg PO BID@0800,1700 04/29/24 04/29/24 Clobetasol Propionate/Emoll 1 applic TOPICAL BID PRN 04/29/24 04/29/24 [Clobetasol Emulsion 0.05% Foam] Cyanocobalamin (Vitamin B-12) 1,000 mcg PO DAILY@79904/29/24 04/29/24 [Vitamin B-12] Fluticasone Nasal [place] [Flonase 2 spray EA NOSTRIL BID PRN 04/29/24 04/29/24 Nasal [place]] Levothyroxine Sodium [Synthroid] 50 mcg PO GARZA@59904/29/24 04/29/24 Levothyroxine Sodium [Synthroid] 100 mcg PO MOTUWETHFRSA@59904/29/24 04/29/24 Loperamide HCl [Imodium A-D] 2 - 4 mg PO DIRECTED PRN MDD 4 04/29/24 04/29/24 tablets Magnesium Hydroxide [Milk of 7,200 mg PO DIRECTED PRN 04/29/24 04/29/24 Magnesia Concentrate] Multivitamins, Thera [Multivitamin 1 tab PO DAILY@79904/29/24 04/29/24 (formulary)] Na Phos,M-B/Na Phos,Di-Ba [Fleet 133 ml RECTAL DAILY PRN 04/29/24 04/29/24 Adult] Sennosides/Docusate Sodium [Senna 1 tab PO HS 04/29/24 04/29/24 Plus 8.6-50 mg Tablet] bisacodyL [Dulcolax] 10 mg RECTAL DAILY PRN 04/29/24 04/29/24 polyethylene glycoL 3350 [Miralax] 17 gm PO DAILY@0804/29/24 04/29/24 predniSONE 10 mg PO DAILY@0804/29/24 04/29/24 traMADol HCl [Ultram] 50 mg PO Q6HR PRN MDD 200mg 04/29/24 04/29/24 Previous Rx's Medication Instructions Recorded Nitroglycerin Sl Tabs [Nitrostat] 0.4 mg SUBLINGUAL Q5M PRN #25 tab 03/19/20 Allergies Allergy/AdvReac Type Severity Reaction Status Date / Time No Known Allergies Allergy Verified 04/29/24 17:22 Review of Systems ROS Other: All systems not noted in ROS Statement are negative. <Tiffanie Randle - Last Filed: 04/29/24 19:24> ROS Other: All systems not noted in ROS Statement are negative. <Bijal Dowling - Last Filed: 04/29/24 21:44> ROS Statement: Those systems with pertinent positive or pertinent negative responses have been documented in the HPI. Past Medical History Past Medical History: Cancer, GI Bleed, Hyperlipidemia, Hypertension, Osteoarthritis (OA), Thyroid Disorder Additional Past Medical History / Comment(s): LOWER GI BLEED. BASAL SKin CA. OSTEOPENIA. gout, polymyositis. HEART MURMUR, ASCENDING THORACIC AORTIC ANEURSYM-being monitored, HYPERTROPHIC CARDIOMYOPATHY, recent stress test, supposed to have upcoming surgery History of Any Multi-Drug Resistant Organisms: None Reported Past Surgical History: Heart Catheterization, Heart Catheterization With Stent, Hysterectomy, Orthopedic Surgery Additional Past Surgical History / Comment(s): SINUS. CARPAL TUNNEL CARMINE. BASAL SKIN CA ON BACK,LT FOOT TOE STRAIGHTENED, BLEPHAROPLASTY, cataracts removed Past Anesthesia/Blood Transfusion Reactions: Postoperative Nausea & Vomiting (PONV) Additional Past Anesthesia/Blood Transfusion Reaction / Comment(s): INCLUDES IV SEDATION. no hx. blood transfusion reaction Date of Last Stent Placement:: March 2020 Past Psychological History: Depression Smoking Status: Never smoker Past Alcohol Use History: None Reported Past Drug Use History: None Reported - Past Family History Mother Family Medical History: Coronary Artery Disease (CAD) Father Family Medical History: Diabetes Mellitus <Tiffanie Randle - Last Filed: 04/29/24 19:24> General Exam Limitations: no limitations General appearance: alert, in no apparent distress Head exam: Present: atraumatic, normocephalic, normal inspection Eye exam: Present: normal appearance, PERRL, EOMI. Absent: scleral icterus, conjunctival injection, periorbital swelling ENT exam: Present: normal exam, mucous membranes moist Neck exam: Present: normal inspection. Absent: tenderness, meningismus, lymphadenopathy Respiratory exam: Present: normal lung sounds bilaterally. Absent: respiratory distress, wheezes, rales, rhonchi, stridor Cardiovascular Exam: Present: regular rate, normal rhythm, normal heart sounds. Absent: systolic murmur, diastolic murmur, rubs, gallop, clicks GI/Abdominal exam: Present: soft, tenderness (epigastric and LLQ), normal bowel sounds. Absent: distended, guarding, rebound, rigid Rectal exam: Present: normal inspection, normal rectal tone, heme (+) stool Extremities exam: Present: normal inspection, normal capillary refill, other (bilateral ecchymosis of hips). Absent: tenderness, pedal edema, joint swelling, calf tenderness Back exam: Present: normal inspection Neurological exam: Present: alert, oriented X3, CN II-XII intact Psychiatric exam: Present: normal affect, normal mood Skin exam: Present: warm, dry, intact, normal color. Absent: rash <Tiffanie Randle - Last Filed: 04/29/24 19:24> Course Vital Signs 04/29/24 04/29/24 04/29/24 16:22 18:12 18:25 Temperature 98.4 F 98.7 F 98.4 F Pulse Rate 78 84 78 Respiratory 18 16 16 Rate Blood Pressure 115/61 109/53 113/53 O2 Sat by Pulse 100 99 99 Oximetry 04/29/24 04/29/24 04/29/24 18:45 19:30 20:01 Temperature 98.4 F Pulse Rate 80 76 75 Respiratory 16 18 18 Rate Blood Pressure 117/61 129/72 121/64 O2 Sat by Pulse 99 99 100 Oximetry 04/29/24 21:08 Temperature Pulse Rate 79 Respiratory 18 Rate Blood Pressure 116/62 O2 Sat by Pulse 100 Oximetry Medical Decision Making - Lab Data Result diagrams: 04/29/24 16:51 04/29/24 16:51 <Tiffanie Randle - Last Filed: 04/29/24 19:24> - Lab Data Result diagrams: 04/29/24 16:51 04/29/24 16:51 <Bijal Dowling - Last Filed: 04/29/24 21:44> - Medical Decision Making Was pt. sent in by a medical professional or institution ([facility] Cruz, FASHION PHOTOGRAPHER, urgent care, hospital, or snf...) When possible be specific @ -No Did you speak to anyone other than the patient for history (EMS, parent, family, police, friend...)? What history was obtained from this source @ -No Did you review nursing and triage notes (agree or disagree)? Why? @ -I reviewed and agree with nursing and triage notes Were old charts reviewed (outside hosp., previous admission, EMS record, old EKG, old radiological studies, urgent care reports/EKG's, snf records)? Report findings @ -No old charts were reviewed Differential Diagnosis (chest pain, altered mental status, abdominal pain women, abdominal pain men, vaginal bleeding, weakness, fever, dyspnea, syncope, headache, dizziness, GI bleed, back pain, seizure, CVA, palpatations, mental health, musculoskeletal)? @ -Differential GI Bleed: Esophageal varices, aortoenteric fistula, Marina-Jacobsen, gastritis, peptic ulcer disease, diverticulosis, inflammatory bowel disease, hemorrhoids, fissure, colitis, malignancy, Meckels diverticulum, this is not meant to be an all- inclusive list. EKG interpreted by me (3pts min.). @ -completed at 1618, sinus rhythm, ventricular rate 75, IL interval 170, QTc 444. No acute signs of ischemia. X-rays interpreted by me (1pt min.). @ -None done CT interpreted by me (1pt min.). @ -CT scan of the abdomen and pelvis with contrast reveals a short segment of bowel wall thickening in the sigmoid colon and transverse colon which could represent peristalsis. right hip postsurgical changes with a suspected hematoma measuring 45 x 45 x 67 m, U/S interpreted by me (1pt. min.). @ -None done What testing was considered but not performed or refused? (CT, X-rays, U/S, labs)? Why? @ -None What meds were considered but not given or refused? Why? @ -None Did you discuss the management of the patient with other professionals (professionals i.e. DIO[facility] Cruz, FASHION PHOTOGRAPHER, lab, RT, psych nurse, social insurance analyst, clothing worker, teacher, home school liaison officer, manager of case)? Give summary @ -I spoke to ER attending, Dr. Waldron, at [facility] to the patient's case. Patient is accepted with GI bleed and low hemoglobin. Was smoking cessation discussed for >3mins.? @ -No Was critical care preformed (if so, how long)? @ -No Were there social determinants of health that impacted care today? How? (Homelessness, low income, unemployed, alcoholism, drug addiction, transportation, low edu. Level, literacy, decrease access to med. care, alf, rehab)? @ -No Was there de-escalation of care discussed even if they declined (Discuss DNR or withdrawal of care, Hospice)? DNR status @ -No What co-morbidities impacted this encounter? (DM, HTN, Smoking, COPD, CAD, Cancer, CVA, ARF, Chemo, Hep., AIDS, mental health diagnosis, sleep apnea, morbid obesity)? @ -None Was patient admitted / discharged? Hospital course, mention meds given and route, prescriptions, significant lab abnormalities, going to OR and other pertinent info. @ -transferred. 73-year-old female with low hemoglobin. Presentation, patient's vitals are stable and there are no active signs of bleeding. Rectal examination there is good rectal tone and no signs of blood or active hemorrhoids or bleeding. on examination patient is noted to have mild epigastric tenderness and left lower quadrant tenderness. Laboratory results today reveal a hemoglobin of 6.7, additionally she has an elevated BUN at 27 and decreased creatinine of 0.35 and a BUN/creatinine ratio of 77.14. CBC reveals a leukocytosis of 17.6 low hemoglobin of 6.7 hematocrit 20.9. Neutrophilia 15.8. CMP reveals hyponatremia of 131, acidosis with a CO2 of 20, stool occult blood is positive. Reveals a postsurgical hematoma, mild wall thickening in the sigmoid and transverse colon. Due to patient's low hemoglobin and positive occult blood she will be transferred to [facility] for further evaluation. Case discussed with Dr. Dowling Undiagnosed new problem with uncertain prognosis? @ -No Drug Therapy requiring intensive monitoring for toxicity (Heparin, Nitro, Insulin, Cardizem)? @ -No Were any procedures done? @ -No Diagnosis/symptom? @ -GI bleed, low hemoglobin Acute, or Chronic, or Acute on Chronic? @ -Acute Uncomplicated (without systemic symptoms) or Complicated (systemic symptoms)? @ -Complicated Side effects of treatment? @ -No Exacerbation, Progression, or Severe Exacerbation? @ -No Poses a threat to life or bodily function? How? (Chest pain, USA, IL, pneumonia, PE, COPD, DKA, ARF, appy, cholecystitis, CVA, Diverticulitis, Homicidal, Suicidal, threat to staff... and all critical care pts) @ -No (Tiffanie Randle) Critical care time of 35 minutes for transfusion of blood products (Bijal Dowling) - Lab Data Lab Results 04/29/24 04/29/24 04/29/24 Range/Units 16:51 16:51 16:51 WBC 17.6 H (3.8-10.6) k/uL RBC 2.27 L (3.80-5.40) m/uL Hgb 6.7 L* (11.4-16.0) gm/dL Hct 20.9 L (34.0-46.0) % MCV 91.9 (80.0-100.0) fL MCH 29.5 (25.0-35.0) pg MCHC 32.0 (31.0-37.0) g/dL RDW 19.9 H (11.5-15.5) % Plt Count 360 (150-450) k/uL MPV 7.5 Neutrophils % 89 % Lymphocytes % 5 % Monocytes % 5 % Eosinophils % 0 % Basophils % 0 % Neutrophils # 15.8 H (1.3-7.7) k/uL Lymphocytes # 0.8 L (1.0-4.8) k/uL Monocytes # 0.9 (0-1.0) k/uL Eosinophils # 0.0 (0-0.7) k/uL Basophils # 0.0 (0-0.2) k/uL Hypochromasia Slight Poikilocytosis Slight Anisocytosis Slight Macrocytosis Slight Sodium 131 L (137-145) mmol/L Potassium 3.8 (3.5-5.1) mmol/L Chloride 103 (98-107) mmol/L Carbon Dioxide 20 L (22-30) mmol/L Anion Gap 8 mmol/L BUN 27 H (7-17) mg/dL Creatinine 0.35 L (0.52-1.04) mg/dL Est GFR (CKD-EPI)AfAm >90 (>60 ml/min/1.73 sqM) Est GFR (CKD-EPI)NonAf >90 (>60 ml/min/1.73 sqM) Glucose 100 H (74-99) mg/dL Calcium 9.3 (8.4-10.2) mg/dL Total Bilirubin 0.6 (0.2-1.3) mg/dL AST 28 (14-36) U/L ALT 18 (4-34) U/L Alkaline Phosphatase 80 (38-126) U/L Total Protein 5.4 L (6.3-8.2) g/dL Albumin 3.2 L (3.5-5.0) g/dL Amylase 39 (30-110) U/L Lipase 137 (23-300) U/L Stool Occult Blood Positive H (Negative) Blood Type Blood Type Recheck Bld Type Recheck Status Antibody Screen Crossmatch Spec Expiration Date 04/29/24 Range/Units 16:51 WBC (3.8-10.6) k/uL RBC (3.80-5.40) m/uL Hgb (11.4-16.0) gm/dL Hct (34.0-46.0) % MCV (80.0-100.0) fL MCH (25.0-35.0) pg MCHC (31.0-37.0) g/dL RDW (11.5-15.5) % Plt Count (150-450) k/uL MPV Neutrophils % % Lymphocytes % % Monocytes % % Eosinophils % % Basophils % % Neutrophils # (1.3-7.7) k/uL Lymphocytes # (1.0-4.8) k/uL Monocytes # (0-1.0) k/uL Eosinophils # (0-0.7) k/uL Basophils # (0-0.2) k/uL Hypochromasia Poikilocytosis Anisocytosis Macrocytosis Sodium (137-145) mmol/L Potassium (3.5-5.1) mmol/L Chloride (98-107) mmol/L Carbon Dioxide (22-30) mmol/L Anion Gap mmol/L BUN (7-17) mg/dL Creatinine (0.52-1.04) mg/dL Est GFR (CKD-EPI)AfAm (>60 ml/min/1.73 sqM) Est GFR (CKD-EPI)NonAf (>60 ml/min/1.73 sqM) Glucose (74-99) mg/dL Calcium (8.4-10.2) mg/dL Total Bilirubin (0.2-1.3) mg/dL AST (14-36) U/L ALT (4-34) U/L Alkaline Phosphatase (38-126) U/L Total Protein (6.3-8.2) g/dL Albumin (3.5-5.0) g/dL Amylase (30-110) U/L Lipase (23-300) U/L Stool Occult Blood (Negative) Blood Type O Positive Blood Type Recheck O Pos Bld Type Recheck Status No Antibody Screen NEGATIVE Crossmatch See Detail Spec Expiration Date 05/02/20242350 Disposition Is patient prescribed a controlled substance at d/c from ED?: No - Out of Hospital Transfer - Req. Specs Out of Hospital Transfer - Requested Specifics: Other Emergency Center ([facility]) <Tiffanie Randle - Last Filed: 04/29/24 19:24> <Bijal Dowling - Last Filed: 04/29/24 21:44> Clinical Impression: Low hemoglobin, GI bleed, Positive occult stool blood test Disposition: OTHER INSTITUTION NOT DEFINED Condition: Poor Referrals: Wilfredo Tovar MD [Primary Care Provider] - 1-2 days
[2024-04-29 17:06] LABS: Anisocytosis Slight; Basophils % (A) 0 %; Eosinophils % (A) 0 %; HCT 20.9 % (34.0-46.0); Hypochromasia Slight; Lymphocytes # (A) 0.8 k/uL (1.0-4.8); Lymphocytes % (A) 5 %; MCH 29.5 pg (25.0-35.0); MCV 91.9 fL (80.0-100.0); Macrocytosis Slight; Mean Platelet Volume 7.5; Monocytes # (A) 0.9 k/uL (0-1.0); Monocytes % (A) 5 %; Neutrophils # (A) 15.8 k/uL (1.3-7.7); Neutrophils % (A) 89 %; Platelet Count 360 k/uL (150-450); Poikilocytosis Slight; RBC 2.27 m/uL (3.80-5.40); RDW 19.9 % (11.5-15.5); WBC 17.6 k/uL (3.8-10.6)
[2024-04-29 17:13] LABS: HGB 6.7 gm/dL (11.4-16.0)
[2024-04-29 17:22] LABS: ALT 18 U/L (4-34); AST 28 U/L (14-36); African American GFR (CKD) >90 (>60 ml/min/1.73 sqM); Albumin 3.2 g/dL (3.5-5.0); Alkaline Phosphatase 80 U/L (38-126); Amylase 39 U/L (30-110); Anion Gap 8 mmol/L; Blood Urea Nitrogen 27 mg/dL (7-17); Calcium 9.3 mg/dL (8.4-10.2); Carbon Dioxide 20 mmol/L (22-30); Chloride 103 mmol/L (98-107); Glucose 100 mg/dL (74-99); Lipase 137 U/L (23-300); Non-African American GFR(CKD) >90 (>60 ml/min/1.73 sqM); Potassium 3.8 mmol/L (3.5-5.1); Sodium 131 mmol/L (137-145); Total Bilirubin 0.6 mg/dL (0.2-1.3); Total Protein 5.4 g/dL (6.3-8.2)
--- NOTE | 2024-04-29 18:31 | CT ---
EXAMINATION TYPE: CT abdomen pelvis w con CT DLP: 980 mGycm, Automated exposure control for dose reduction was used. DATE OF EXAM: 04/29/2024 6:15 PM COMPARISON: None CLINICAL INDICATION:Female, 73 years old with history of abdominal pain, hx dark stools, low Hgb; abd ominal pain, hx dark stools, low Hgb. TECHNIQUE: Axial CT abdomen pelvis w con;Sagittal and coronal reformats were created on a separate w orkstation. Contrast used:100 mL of Isovue 300 with IV Contrast, (none if empty) Oral contrast used: without Oral Contrast (none if empty) FINDINGS: LOWER CHEST: Unremarkable ABDOMEN LIVER: Unremarkable GALLBLADDER AND BILE DUCTS: Nondistended gallbladder. PANCREAS: Unremarkable. SPLEEN: Unremarkable. ADRENAL GLANDS: Unremarkable. KIDNEYS AND URETERS: No evidence of hydronephrosis or renal calculus. The ureters are unremarkable. Bilateral cortical renal cysts. PELVIS BLADDER: There is gas in the urinary bladder. REPRODUCTIVE: Unremarkable. ABDOMEN & PELVIS STOMACH AND BOWEL: No evidence of bowel obstruction. The appendix is normal. There is short segment o f wall thickening/nondistention of the transverse colon series 501 image 53. There is also thickening of the bowel in the pelvis series 203 image 89. PERITONEUM/RETROPERITONEUM: No evidence of pneumoperitoneum or free fluid. VASCULATURE: No evidence of aortic aneurysm. MUSCULOSKELETAL: No acute osseous abnormalities. Moderate disc degeneration changes are present throu ghout the thoracolumbar spine. Grade 1 anterolisthesis of L4 and L5. Incomplete osseous fusion on the right hip fracture. Correlate with date of injury. The left hip fracture demonstrates osseous fusion . LYMPH NODES: No gross evidence for lymphadenopathy. SOFT TISSUE/ABDOMINAL WALL: Unremarkable IMPRESSION: 1. Short segment of bowel wall thickening in the sigmoid colon and transverse colon which could repr esent peristalsis. Consider colonoscopy if not recently performed. 2. Incomplete osseous fusion around the right hip hardware-related with fracture and surgery.. Left hip fixation hardware appears well fused. 3. Gas within the urinary bladder, correlate for recent instrumentation.
[2024-04-29 19:47] VITALS: RESP 18
[2024-04-29 21:11] VITALS: BP 116/62; PULSE 79
== END 2024-04-29 21:11 | disposition other institution (70) ==
LOC: EC 16:18
DX: D64.9 Anemia, unspecified (principal); K92.2 Gastrointestinal hemorrhage, unspecified; R19.5 Other fecal abnormalities
CPT/HCPCS: 36415; 93005; 86900; 86901; 80053; 82150; 83690; 85025; 86850; 86920; 82272; 74177; 99285; 36430; P9016; Q9967

== ENCOUNTER → 2024-09-18 | Outpatient (CLI) | payer MEDICARE ==
--- NOTE | 2024-09-20 03:48 | MM ---
Reason for Exam: Screening (asymptomatic). Last mammogram was performed 1 year(s) and 1 month(s) ago. Patient History: Menarche at age 14. First Full-Term at age 28. Postmenopausal. Other cancer, age 56. Hormonal Contraceptives for 3 months. Risk Values: Sudha 5 year model risk: 1.9%. NCI Lifetime model risk: 5.4%. Prior Study Comparison: 08/14/2021 Bilateral Screening Mammogram, [facility]. 08/15/2022 Bilateral MG 3D screening mammo w/cad, [facility]. 08/30/2023 Bilateral MG 3D screening mammo w/cad, [facility]. Tissue Density: The breasts are heterogeneously dense, which may obscure small masses. Findings: Analyzed By CAD. The pattern is symmetrical. Benign coarse calcifications are within the left breast. Punctate calcifications are within the right breast. There may be developing small round calcifications left breast. Additional evaluation with magnification views recommended. Right breast:No suspicious groups of microcalcifications, spiculated or lobular masses, architectural distortion or other secondary signs of malignancy are mammographically apparent. Overall Assessment: Incomplete: need additional imaging evaluation, BI-RAD 0 Management: Diagnostic Mammogram of the left breast. A negative mammogram report should not preclude additional follow up of suspicious palpable abnormalities. Patient should continue monthly self breast exam. A clinical breast exam by your physician is recommended on an annual basis and results should be correlated with mammographic findings. Note on Sudha scores and lifetime risk: 1. A Sudha score greater than 3% is considered moderate risk. If this is the case, consider specialist referral to assess eligibility for a risk reducing agent. 2. If overall lifetime risk for the development of breast cancer is 20% or higher, the patient may qualify for future screening with alternating mammogram and breast MRI. [facility], , 09/20/2024 3:45 AM. Electronically signed and approved by: Felix Mena D.O. Radiologis
== END | disposition home or self-care (01) ==
LOC: RADMAMWWP 14:34
PROVIDERS: ATTEND Internal Medicine
DX: Z12.31 Encounter for screening mammogram for malignant neoplasm of breast (principal); R92.333 Mammographic heterogeneous density, bilateral breasts; Z78.0 Asymptomatic menopausal state
CPT/HCPCS: 77063; 77067

== ENCOUNTER → 2024-09-24 | Outpatient (CLI) | payer MEDICARE ==
--- NOTE | 2024-09-24 09:10 | MM ---
Reason for Exam: Additional evaluation requested from abnormal screening. Last screening mammogram was performed less than 1 month ago. Patient History: Menarche at age 14. First Full-Term at age 28. Postmenopausal. Other cancer, age 56. Hormonal Contraceptives for 3 months. Risk Values: Sudha 5 year model risk: 1.9%. NCI Lifetime model risk: 5.4%. Prior Study Comparison: 08/15/2022 Bilateral MG 3D screening mammo w/cad, [facility]. 08/30/2023 Bilateral MG 3D screening mammo w/cad, [facility]. 09/18/2024 Bilateral MG 3D screening mammo w/cad, [facility]. Tissue Density: Left: There are scattered areas of fibroglandular density. Findings: Analyzed By CAD. Benign calcifications left breast without suspicious cluster. Overall Assessment: Benign, BI-RAD 2 Management: Screening Mammogram of both breasts in 1 year. . Results were given to the patient verbally at the time of exam. Patient should continue monthly self-breast exams. A clinical breast exam by your physician is recommended on an annual basis. This exam should not preclude additional follow-up of suspicious palpable abnormalities. Note on Sudha scores and lifetime risk: 1. A Sudha score greater than 3% is considered moderate risk. If this is the case, consider specialist referral to assess eligibility for a risk reducing agent. 2. If overall lifetime risk for the development of breast cancer is 20% or higher, the patient may qualify for future screening with alternating mammogram and breast MRI. [facility], , 09/24/2024 9:04 AM. Electronically signed and approved by: Toy Cruz M.D. Radiologis
== END | disposition home or self-care (01) ==
LOC: RADMAMWWP 08:31
PROVIDERS: ATTEND Internal Medicine
DX: R92.8 Other abnormal and inconclusive findings on diagnostic imaging of breast (principal); Z78.0 Asymptomatic menopausal state; R92.322 Mammographic fibroglandular density, left breast
CPT/HCPCS: 77065; G0279; 77061

== ENCOUNTER 2025-02-24 11:40 | Emergency (ER) | payer MEDICARE ==
--- NOTE | 2025-02-24 12:24 | CT ---
EXAMINATION TYPE: CT brain cspine wo con, CT facial bones wo con DATE OF EXAM: 02/24/2025 COMPARISON: NONE CLINICAL INDICATION: Female, 74 years old with history of pain, Code Coag., Neck and facial pain. TECHNIQUE: CT scan of the head and cervical spine and facial bones are performed without contrast. CT DLP: Combined DLP of 1064.5 mGycm. Automated Exposure Control for Dose Reduction was Utilized. FINDINGS: There is no acute intracranial hemorrhage or midline shift identified. Moderate ventricul ar and sulcal prominence is seen. Mild low-attenuation in the periventricular white matter is presen t. The calvarium is intact. The mandible is intact. Temporomandibular joints are maintained bilaterally. The nasal bones are inta ct. Orbital floors and ortega are intact. Bilateral aphakia is present. The zygomatic arches are intac t. The pterygoid plates are intact. There are air-fluid levels in the bilateral maxillary sinuses mor e prominent on the left. There is near completely opacified bilateral sphenoid sinuses with sclerotic wall thickening on the right. There is near completely opacified bilateral ethmoid sinuses. Signific ant heterogeneous soft tissue fills the nasal vault. Secretions throughout the nasopharynx are presen t. Cervical spine is visualized in its entirety from C1 through upper thoracic levels and demonstrates s atisfactory alignment without evidence of acute fracture or dislocation. Prevertebral soft tissue ap pears within normal limits. The C1-C2 articulation is within normal limits. Vertebral body heights a re maintained. Mild to moderate disc space narrowing and moderate anterior spurring at C5-C6 level is seen. Posterior disc herniation is present. Thyroid gland is small in size. Lungs apices show no pne umothorax. IMPRESSION: 1. There is no acute fracture or dislocation evident in the cervical spine. 2. No acute intracranial hemorrhage or midline shift is seen. 3. No acute displaced facial bone fracture. 4. Significant paranasal sinus disease including heterogeneous secretions in the nasopharynx. Blood p roduct not excluded. Correlate clinically. [facility], , 02/24/2025 12:21 PM
--- NOTE | 2025-02-24 12:38 | ED ---
Fall HPI - General Chief Complaint: Fall Stated Complaint: Fall-Head Injury Time Seen by Provider: 02/24/25 11:53 Source: patient, RN notes reviewed Mode of arrival: wheelchair Limitations: no limitations - History of Present Illness Initial Comments: 74-year-old female presents emergency department complaint of head injury, facial injury. Patient states she was at physical therapy got out but states that she fell striking her face. Patient states that she lost consciousness possibly at that time. Patient states she has some facial discomfort. She is on Plavix and had a bloody nose. Denies any visual symptoms no focal weakness no chest pain no shortness of breath. - Related Data Home Medications Medication Instructions Recorded Confirmed Ascorbic Acid [Vitamin C] 500 mg PO DAILY@0800 08/25/15 04/29/24 Candesartan Cilexetil [Atacand] 16 mg PO DAILY@0800 08/25/15 04/29/24 Evolocumab [Repatha Sureclick] 140 mg SQ QMONTHLY 09/01/20 04/29/24 hydroCHLOROthiazide [Hydrodiuril] 25 mg PO DAILY@0800 01/17/22 04/29/24 mycophenolate mofetiL [Cellcept] 1,000 mg PO BID@0800,1700 01/17/22 04/29/24 Ipratropium [place] 0.06%Nasal 1 spray EA NOSTRIL DAILY PRN 09/12/22 04/29/24 [Atrovent Nasal 0.06%] Estrogens, Conjugated Cream 0.5 gm VAGINAL Q2D 11/30/22 04/29/24 [Premarin Vaginal Cream] Metoprolol Succinate (ER) [Toprol 100 mg PO DAILY@0800 11/30/22 04/29/24 XL] buPROPion HCL [buPROPion HCL XL] 150 mg PO DAILY@0800 11/30/22 04/29/24 Colchicine 0.6 mg PO DAILY@0800 PRN 04/07/24 04/29/24 Famotidine [Pepcid] 20 mg PO HS 04/07/24 04/29/24 Aspirin 81 mg PO BID@0800,1700 04/29/24 04/29/24 Clobetasol Propionate/Emoll 1 applic TOPICAL BID PRN 04/29/24 04/29/24 [Clobetasol Emulsion 0.05% Foam] Cyanocobalamin (Vitamin B-12) 1,000 mcg PO DAILY@79904/29/24 04/29/24 [Vitamin B-12] Fluticasone Nasal [place] [Flonase 2 spray EA NOSTRIL BID PRN 04/29/24 04/29/24 Nasal [place]] Levothyroxine Sodium [Synthroid] 50 mcg PO GARZA@59904/29/24 04/29/24 Levothyroxine Sodium [Synthroid] 100 mcg PO MOTUWETHFRSA@59904/29/24 04/29/24 Loperamide HCl [Imodium A-D] 2 - 4 mg PO DIRECTED PRN MDD 4 04/29/24 04/29/24 tablets Magnesium Hydroxide [Milk of 7,200 mg PO DIRECTED PRN 04/29/24 04/29/24 Magnesia Concentrate] Multivitamins, Thera [Multivitamin 1 tab PO DAILY@79904/29/24 04/29/24 (formulary)] Na Phos,M-B/Na Phos,Di-Ba [Fleet 133 ml RECTAL DAILY PRN 04/29/24 04/29/24 Adult] Sennosides/Docusate Sodium [Senna 1 tab PO HS 04/29/24 04/29/24 Plus 8.6-50 mg Tablet] bisacodyL [Dulcolax] 10 mg RECTAL DAILY PRN 04/29/24 04/29/24 polyethylene glycoL 3350 [Miralax] 17 gm PO DAILY@79904/29/24 04/29/24 predniSONE 10 mg PO DAILY@79904/29/24 04/29/24 traMADol HCl [Ultram] 50 mg PO Q6HR PRN MDD 200mg 04/29/24 04/29/24 Previous Rx's Medication Instructions Recorded Nitroglycerin Sl Tabs [Nitrostat] 0.4 mg SUBLINGUAL Q5M PRN #25 tab 03/19/20 Allergies Allergy/AdvReac Type Severity Reaction Status Date / Time No Known Allergies Allergy Verified 02/24/25 11:49 Review of Systems ROS Statement: Those systems with pertinent positive or pertinent negative responses have been documented in the HPI. ROS Other: All systems not noted in ROS Statement are negative. Past Medical History Past Medical History: Cancer, GI Bleed, Hyperlipidemia, Hypertension, Osteoarthritis (OA), Thyroid Disorder Additional Past Medical History / Comment(s): LOWER GI BLEED. BASAL SKin CA. OSTEOPENIA. gout, polymyositis. HEART MURMUR, ASCENDING THORACIC AORTIC ANEURSYM-being monitored, HYPERTROPHIC CARDIOMYOPATHY, recent stress test, supposed to have upcoming surgery History of Any Multi-Drug Resistant Organisms: None Reported Past Surgical History: Heart Catheterization, Heart Catheterization With Stent, Hysterectomy, Orthopedic Surgery Additional Past Surgical History / Comment(s): SINUS. CARPAL TUNNEL CARMINE. BASAL SKIN CA ON BACK,LT FOOT TOE STRAIGHTENED, BLEPHAROPLASTY, cataracts removed Past Anesthesia/Blood Transfusion Reactions: Postoperative Nausea & Vomiting (PONV) Additional Past Anesthesia/Blood Transfusion Reaction / Comment(s): INCLUDES IV SEDATION. no hx. blood transfusion reaction Date of Last Stent Placement:: March 2020 Past Psychological History: Depression Smoking Status: Never smoker Past Alcohol Use History: None Reported Past Drug Use History: None Reported - Past Family History Mother Family Medical History: Coronary Artery Disease (CAD) Father Family Medical History: Diabetes Mellitus General Exam Limitations: no limitations General appearance: alert, in no apparent distress Head exam: Present: atraumatic, normocephalic, normal inspection Eye exam: Present: normal appearance, PERRL, EOMI, periorbital swelling, periorbital tenderness. Absent: scleral icterus, conjunctival injection ENT exam: Present: mucous membranes moist, TM's normal bilaterally, normal external ear exam, other (Nasal tenderness, left periorbital tenderness, ecchymosis and abrasions noted, blood noted in the mouth, nasal). Absent: normal oropharynx Neck exam: Present: normal inspection. Absent: tenderness, meningismus, full ROM (Patient in c-collar), lymphadenopathy Respiratory exam: Present: normal lung sounds bilaterally, chest wall tenderness. Absent: respiratory distress, wheezes, rales, rhonchi, stridor Cardiovascular Exam: Present: regular rate, normal rhythm, normal heart sounds. Absent: systolic murmur, diastolic murmur, rubs, gallop, clicks Neurological exam: Present: alert, oriented X3, CN II-XII intact, reflexes n ormal. Absent: motor sensory deficit Course Vital Signs 02/24/25 11:44 Temperature 98.1 F Pulse Rate 73 Respiratory 16 Rate Blood Pressure 171/86 O2 Sat by Pulse 99 Oximetry Medical Decision Making - Medical Decision Making Was pt. sent in by a medical professional or institution (DIOGO Cruz, PROGRAMMER, urgent care, hospital, or usp...) When possible be specific @ -No Did you speak to anyone other than the patient for history (EMS, parent, family, police, friend...)? What history was obtained from this source @ -No Did you review nursing and triage notes (agree or disagree)? Why? @ -I reviewed and agree with nursing and triage notes Were old charts reviewed (outside hosp., previous admission, EMS record, old EKG, old radiological studies, urgent care reports/EKG's, usp records)? Report findings @ -No old charts were reviewed Differential Diagnosis (chest pain, altered mental status, abdominal pain women, abdominal pain men, vaginal bleeding, weakness, fever, dyspnea, syncope, headache, dizziness, GI bleed, back pain, seizure, CVA, palpatations, mental health, musculoskeletal)? @ -Fall, intracranial hemorrhage, facial fracture nasal fracture, epistaxis EKG interpreted by me (3pts min.). @ -None X-rays interpreted by me (1pt min.). @ -None done CT interpreted by me (1pt min.). @ -CT brain, C-spine showed no acute intracranial, cervical fracture no skull fracture CT facial bones soft tissue swelling, paranasal sinus disease, no acute fracture no nasal fracture U/S interpreted by me (1pt. min.). @ -None done What testing was considered but not performed or refused? (CT, X-rays, U/S, labs)? Why? @ -None What meds were considered but not given or refused? Why? @ -None Did you discuss the management of the patient with other professionals (professionals i.e. DIOGO Cruz, PROGRAMMER, lab, RT, psych nurse, social media marketing specialist, metal machine operator, teacher, chief learning officer, sample case porter)? Give summary @ -No Was smoking cessation discussed for >3mins.? @ -No Was critical care preformed (if so, how long)? @ -No Were there social determinants of health that impacted care today? How? (Homelessness, low income, unemployed, alcoholism, drug addiction, transportation, low edu. Level, literacy, decrease access to med. care, alf, rehab)? @ -No Was there de-escalation of care discussed even if they declined (Discuss DNR or withdrawal of care, Hospice)? DNR status @ -No What co-morbidities impacted this encounter? (DM, HTN, Smoking, COPD, CAD, Cancer, CVA, ARF, Chemo, Hep., AIDS, mental health diagnosis, sleep apnea, morbid obesity)? @ -None Was patient admitted / discharged? Hospital course, mention meds given and route, prescriptions, significant lab abnormalities, going to OR and other pertinent info. @ -Discharged patient had negative imaging. Patient will be discharged in stable condition return parameters discussed Undiagnosed new problem with uncertain prognosis? @ -No Drug Therapy requiring intensive monitoring for toxicity (Heparin, Nitro, Insulin, Cardizem)? @ -No Were any procedures done? @ -No Diagnosis/symptom? @ -[Fall, facial contusion, epistaxis, closed head injury Acute, or Chronic, or Acute on Chronic? @ -Acute Uncomplicated (without systemic symptoms) or Complicated (systemic symptoms)? @ -Complicated Side effects of treatment? @ -No Exacerbation, Progression, or Severe Exacerbation? @ -No Poses a threat to life or bodily function? How? (Chest pain, USA, MD, pneumonia, PE, COPD, DKA, ARF, appy, cholecystitis, CVA, Diverticulitis, Homicidal, Suicidal, threat to staff... and all critical care pts) @ -No Disposition Clinical Impression: Fall, Facial abrasion, Epistaxis, Closed head injury, Facial contusion Disposition: HOME SELF-CARE Condition: Stable Instructions (If sedation given, give patient instructions): Head Injury (ED) Additional Instructions: Please return to the Emergency Department if symptoms worsen or any other concerns. Is patient prescribed a controlled substance at d/c from ED?: No Referrals: Wilfredo Tovar MD [Primary Care Provider] - 1-2 days Time of Disposition: 12:37
[2025-02-24 13:04] VITALS: BP 166/88; PULSE 81; RESP 20; TEMP 97.9
== END 2025-02-24 13:04 | disposition home or self-care (01) ==
LOC: EC 11:40
DX: S00.83XA Contusion of other part of head, initial encounter (principal); S09.90XA Unspecified injury of head, initial encounter; R04.0 Epistaxis; Z79.02 Long term (current) use of antithrombotics/antiplatelets; W18.30XA Fall on same level, unspecified, initial encounter
CPT/HCPCS: 70450; 70486; 72125; 99283

== ENCOUNTER → 2025-03-19 | Outpatient (CLI) | payer MEDICARE ==
[2025-03-19 08:12] LABS: African American GFR (CKD) >90 (>60 ml/min/1.73 sqM); Blood Urea Nitrogen 19 mg/dL (7-17); Non-African American GFR(CKD) >90 (>60 ml/min/1.73 sqM)
--- NOTE | 2025-03-20 11:06 | CT ---
EXAMINATION TYPE: CT abdomen pelvis wo/w con DATE OF EXAM: 03/19/2025 9:39 AM COMPARISON: None. CLINICAL INDICATION: Female, 74 years old with history of R10.33 PERIUMBILICAL PAIN, PERIUMBILICAL PA IN, DUODENAL ULCER, SPLENOMEGALY TECHNIQUE: Axial images were obtained from above the diaphragm to the pubic rami in the axial plane a t 5 mm thick sections. Reconstructed images are reviewed on the computer in the coronal plane. Pre and postcontrast imaging was performed. CONTRAST: 100 ml mL of Isovue 300. Study performed with Oral Contrast DLP: 1483.70 mGycm, Automated exposure control for dose reduction was used. FINDINGS: Limited CT sections are obtained the lung bases. The lung bases are clear. CT ABDOMEN: Liver: Mild fatty infiltration Spleen: Normal Pancreas: Normal Adrenal glands: The adrenal glands are normal. Gallbladder: Normal Kidneys: No masses are evident. No hydronephrosis is present. There is a 1.5 cm right renal cyst. T here is a 2.4 cm mid right renal cyst. Clinical small cortical renal cysts kidney. There is a 4.0 cm cyst in the superior posterior left kidney. There is a 1.1 cm anterior left kidney present. Delayed images were obtained through the kidneys, which remain unremarkable. Aorta: Vascular calcification is within the aorta. Inferior vena cava: Normal. CT PELVIS: Bilateral hip prostheses are present. Loops of bowel within the abdomen and pelvis are normal. Diverticular changes are within the sigmoid colon. No acute diverticulitis. Some thickening of the sigmoid wall in its proximal portion may be p resent. Example image series 7 image 65. Evaluation for underlying mass is recommended. There are l oops of bowel which are incompletely distended or lack oral contrast limiting their evaluation. Appendix: Not identified Urinary bladder: Normal. Genitourinary structures: Uterus and ovaries are not identified. Osseous structures: No suspicious lytic or sclerotic lesions. IMPRESSION: 1. Diverticulosis without acute diverticulitis. 2. There is some thickening of the proximal sigmoid. Additional evaluation for underlying mass is rec ommended. 3. Bilateral cortical renal cysts. 4. Mild fatty infiltration of liver. [facility], , 03/20/2025 11:03 AM
== END | disposition home or self-care (01) ==
LOC: RADCTMAIN 07:32
PROVIDERS: ATTEND Student in an Organized Health Care Education/Training Program
DX: K76.0 Fatty (change of) liver, not elsewhere classified (principal); K26.9 Duodenal ulcer, unspecified as acute or chronic, without hemorrhage or perforation; R16.1 Splenomegaly, not elsewhere classified; N28.1 Cyst of kidney, acquired; K57.30 Diverticulosis of large intestine without perforation or abscess without bleeding
CPT/HCPCS: 82565; 84520; 74178; 36415; Q9967